=== PATIENT | male | born 1980 | race Caucasian/White ===

== ENCOUNTER 2019-08-24 07:08 | Outpatient (CLI) | payer BC, SELFPAY ==
--- NOTE | 2019-08-24 07:12 | USCV_ITS ---
Percy Nava Age: 39 Gender: M : 1980 Exam Date: 08/24/2019 07:33 Ordering Phys: Oralia Strauss XX Technologist: Gem Teague [place] [facility] [place]: CHEST PAIN BP: 105 / 58 HR: 60 Rhythm: Sinus Technical Quality: Adequate MEASUREMENTS (Male / Female) Normal Values 2D ECHO LV Diastolic Diameter PLAX 4.1 cm 4.2 - 5.9 / 3.9 - 5.3 cm LV Systolic Diameter PLAX 2.6 cm LV Chamber Size 3.6 cm IVS Diastolic Thickness 1.1 cm 0.6 - 1.0 / 0.6 - 0.9 cm IVS Systolic Thickness 1.2 cm LVPW Diastolic Thickness 1.3 cm 0.6 - 1.0 / 0.6 - 0.9 cm LVPW Systolic Thickness 1.9 cm RV Chamber Size 2.4 cm LVOT Diameter 2.0 cm LV Ejection Fraction 2D Teich 65.2 % LV Ejection Fraction MOD 2C 53.1 % LV Ejection Fraction 2C AL 51.2 % LA Diameter 4.7 cm LA Width 4.2 cm LA Height 4.6 cm RA Width 3.2 cm RA Height 3.9 cm Aorta at Sinotubular Diameter 2.8 cm M-MODE LV Diastolic Diameter MM 4.4 cm 4.2 - 5.9 / 3.9 - 5.3 cm LV Systolic Diameter MM 2.8 cm LV Ejection Fraction MM Teich 67.9 % IVS Diastolic Thickness MM 0.7 cm 0.6 - 1.0 / 0.6 - 0.9 cm IVS Systolic Thickness MM 0.8 cm LVPW Diastolic Thickness MM 1.1 cm 0.6 - 1.0 / 0.6 - 0.9 cm LVPW Systolic Thickness MM 1.2 cm Aortic Annulus Diameter 2.7 cm LA Ao Ratio MM 1.7 MV E Point Septal Separation 0.7 cm DOPPLER AV Peak Velocity 119.0 cm/s LVOT Peak Velocity 109.0 cm/s AV Area Cont Eq vti 2.8 cm squared AV Area Cont Eq pk 3.0 cm squared MV Area PHT 3.9 cm squared Mitral E to A Ratio 1.0 MV E' Velocity 11.0 cm/s Mitral E to MV E' Ratio 7.2 Mitral E to LV E' Lateral Ratio 7.0 Mitral E to LV E' Septal Ratio 7.4 TR Peak Velocity 253.0 cm/s TR Peak Gradient 25.5 mmHg TR Mean Velocity 128.9 cm/s TR Mean Gradient 9.6 mmHg TR Velocity Time Integral 66.0 cm TV Peak E Velocity 58.0 cm/s Right Atrial Pressure 3.0 mmHg Pulmonary Artery Systolic Pressu 28.6 mmHg PV Peak Velocity 94.0 cm/s RV Acceleration Time 0.2 s RV Ejection Time 0.4 s RV AcT/ET 0.5 FINDINGS Left Ventricle Normal left ventricular size and systolic function, EF 60 %.normal left ventricular filling pressure. Right Ventricle Normal right ventricular size and systolic function. Right Atrium Normal right atrial size. Left Atrium Mildly increased left atrial size. Mitral Valve Thickened mitral valve. Aortic Valve No gross abnormalities noted Tricuspid Valve No gross abnormalities noted Pulmonic Valve No gross abnormalities noted Pericardium Normal pericardium without effusion. Aorta Normal ascending aorta dimension. CONCLUSIONS Normal left ventricular size and systolic function, EF 60 %. No gross wall motion abnormalities. No significant stenotic or regurgitant lesions Mildly increased left atrial size. Thickened mitral valve. There is no pericardial effusion. There are no intracardiac masses. No previous study is available for comparison. Dr Home Garg MD FACC (Electronically Signed) Final Date: 24 August 2019 15:22 S
== END 2019-08-24 07:09 | disposition home or self-care (01) ==
LOC: US 07:10
PROVIDERS: Family Provider Physician Assistant Medical; PCP Physician Assistant Medical; Visit Provider Nurse Practitioner Family
DX: I05.9 Rheumatic mitral valve disease, unspecified (principal); R53.83 Other fatigue; R07.9 Chest pain, unspecified
CPT/HCPCS: 93306

== ENCOUNTER → 2021-02-22 08:04 | Outpatient (BNVA) | payer BC, SELFPAY | PROVIDERS: Family Provider Physician Assistant Medical; PCP Physician Assistant Medical; Visit Provider Surgery | DX: Z20.822 Contact with and (suspected) exposure to COVID-19 (principal); Z11.52 Encounter for screening for COVID-19 | CPT/HCPCS: 87635 ==

== ENCOUNTER 2021-03-01 08:54 | Day surgery (SDC) | payer BC, SELFPAY ==
[2021-02-23 13:20] VITALS: BMI 30.5
--- NOTE | 2021-03-01 09:16 | ANES.PREANE2 ---
Pre-Anesthetic Assessment Pre-Anesthetic Assessment: Height/Weight: Height 1.78 m Weight 96.615 kg Preop Diagnosis: upper gi symptoms Proposed Procedure: Operation Date: 03/01/21 10:30 Proposed Procedures p EGD 66221 R10.13(Not Applicable) - Charbel Flores MD Familial anesthetic complications: None Was Beta Shannon taken within 24 hours: N/A Was Clonidine taken within 24 hours: N/A Last intake: > 8 hrs Social: Social History: No alcohol and No tobacco Exam: Pre-Anes Outpt Exam: alert, oriented x 3, clear to auscultation bilaterally and regular rate & rhythm Airway: Cervical ROM: WNL MP: 2 Dentition: Full GI: Comments: abdominal pain Anesthetic Plan: ASA status: 1 Anesthesia: MAC Risk of > 500 ml blood loss (7ml/kg in children): No PFSH Anesthesia PFSH: Medical History (Updated 02/19/21 @ 11:43 by Charbel Flores MD) Anxiety Hx of nephrolithotomy with removal of calculi Family History Denies family history of Anesthesia complication Bleeding disorder Social History Smoking and tobacco status: never smoked Data Anesthesia Cardiac Studies: No Data to Display
[2021-03-01 09:44] VITALS: BP 110/83; PULSE 55; RESP 18; TEMP 36.8; O2SAT 97
[2021-03-01] MEDS: sodium chloride 0.9% 1,000 ML 30 ML IV (09:45)
--- NOTE | 2021-03-01 10:19 | W.PM.OPSUD ---
Surgery/Procedure H&P Update DATE OF PROCEDURE: March 01, 2021 DATE H&P PERFORMED: 02/19/21 H&P UPDATE INFORMATION: I have reviewed H&P completed within last 30 days, I have examined patient prior to procedure and No changes to prior documentation PREOP DIAGNOSIS: upper gi symptoms PLANNED PROCEDURE: Operation Date: 03/01/21 10:30 Proposed Procedures p EGD 43957 R10.13(Not Applicable) - Charbel Flores MD
[2021-03-01 11:05] VITALS: BP 117/74; PULSE 68; RESP 16; TEMP 36.2; O2SAT 92
[2021-03-01 11:17] VITALS: BP 119/85; PULSE 54; RESP 18; O2SAT 97
== END 2021-03-01 11:30 | disposition home or self-care (01) ==
PROVIDERS: PCP Physician Assistant Medical; Visit Provider Surgery
PROC: 0DJ08ZZ Inspection of Upper Intestinal Tract, Via Natural or Artificial Opening Endoscopic (ICD-10-PCS; CPT 43235; principal; 2021-03-01 10:30)
DX: R10.13 Epigastric pain (principal); K20.90 Esophagitis, unspecified without bleeding; F41.9 Anxiety disorder, unspecified
CPT/HCPCS: 43235; 96360; 96361; J2704; J7030

== ENCOUNTER 2021-04-05 09:41 | Outpatient (CLI) | payer BC, SELFPAY ==
--- NOTE | 2021-04-05 10:00 | NM_ITS ---
WS: [id number] NUCLEAR MEDICINE HIDA SCAN CLINICAL INFORMATION: R10.13 - Epigastric pain TECHNIQUE: Following intravenous administration of 4.8 mCi of technetium 99m mebrofenin, images of th e abdomen were obtained over the course of 60 minutes. Next, gallbladder ejection fraction was determ ined by obtaining preprandial and one-hour postprandial images of the gallbladder following oral eli stion of Ensure. COMPARISON: FINDINGS: Normal hepatic uptake at 5 minutes. Gallbladder is visualized by 10 minutes. No evidence of acute cho lecystitis. Normal common bile duct and small bowel activity. Normal hepatic washout. Gallbladder ejection fraction 68% within normal limits. No evidence of chronic cholecystitis. NM/NM hepatobiliary w phar* [id number] IMPRESSION: 1. No evidence of acute or chronic cholecystitis. 2. Gallbladder ejection fraction 68% within normal limits.
== END 2021-04-05 09:42 | disposition home or self-care (01) ==
PROVIDERS: PCP Physician Assistant Medical; Visit Provider Surgery
DX: R10.13 Epigastric pain (principal)
CPT/HCPCS: 78227; A9537

== ENCOUNTER 2022-02-12 13:59 | Outpatient (CLI) | payer BC, SELFPAY ==
--- NOTE | 2022-02-12 14:06 | XR_ITS ---
WS: [id number] ABDOMEN: SUPINE FILM HISTORY: STONES COMPARISON: 03/07/2008 Normal bowel gas pattern. Normal osseous structures. Phlebolith LEFT hemipelvis. Right kidney: No renal or ureteral stone identified. Left kidney: No renal or ureteral stone identified. XR/XR KUB [id number] IMPRESSION: No renal or ureteral calcifications.
== END 2022-02-12 14:00 | disposition home or self-care (01) ==
LOC: RAD 14:01
PROVIDERS: PCP Physician Assistant Medical; Visit Provider Urology
DX: N20.1 Calculus of ureter (principal)
CPT/HCPCS: 74018

== ENCOUNTER 2022-02-18 08:20 | Day surgery (SDC) | payer BC, SELFPAY ==
[2022-02-15 14:05] VITALS: BMI 31.5
--- NOTE | 2022-02-18 05:25 | W.PM.OPSUD ---
Surgery/Procedure H&P Update DATE OF PROCEDURE: February 18, 2022 DATE H&P PERFORMED: 02/12/22 H&P UPDATE INFORMATION: I have reviewed H&P completed within last 30 days, I have examined patient prior to procedure, Changes to prior documentation as noted here and H&P is in [facility] [place] on date indicated CHANGES TO PREVIOUS DOCUMENTATION: He passed several stones. KUB shows that the stones previously defined of the left UVJ are no longer present. He is asymptomatic Surgery canceled Reviewed stone risk reduction strategies. Follow-up in about 3 months with KUB PREOP DIAGNOSIS: Left distal ureteral calculi, symptomatic PLANNED PROCEDURE: Operation Date: 02/18/22 10:00 Proposed Procedures p Cystoscopy(Not Applicable) - Alvaro Arevalo MD s Retrograde Pyelogram(Left) - MD meño Rodriguez Ureteroscopy(Not Applicable) - Alvaro Arevalo MD s Laser Lithotripsy(Left) - MD meño Rodriguez Ureteral Stent Placement(Left) - Alvaro Arevalo MD
--- NOTE | 2022-02-18 08:37 | XRR_ITS ---
PROCEDURE INFORMATION: Exam: XR Abdomen Exam date and time: 02/18/2022 8:44 AM Age: 41 years old Clinical indication: Condition or disease; Kidney or ureter condition; Calculus (stone) in kidney; Additional info: Checking for passage of stones TECHNIQUE: Imaging protocol: Radiologic exam of the abdomen. Views: Frontal supine view of the abdomen. 1 View. COMPARISON: CR XR KUB [id number] 02/12/2022 2:[address] ABDOMEN AND PELVIS WITHOUT CONTRAST February 08, 2022. FINDINGS: Gastrointestinal tract: There is a non-obstructive bowel gas pattern. There is no abnormal dilatation of bowel loops. There is no pneumatosis or mass effect. There is no organomegaly. Intraperitoneal space: No definite free air on the supine view exam. Bones/joints: There are no acute osseous abnormalities noted. Soft tissues: No radiopaque foreign body or abnormal opacity. A phlebolith is seen in the left pelvis. No definite renal or ureteral calculi are visualized. XR/XR KUB [id number] IMPRESSION: No definite renal or ureteral calculi are visualized.
--- NOTE | 2022-02-18 09:10 | PC.NURSE ---
pt arrived at [facility] for left ureteral stone removal upon prepping the pt he stated he passed stones at home and that Dr. Arevalo stated that if enough stone was passed the pt could get a KUB the morning of procedure to determine the necessity of proceeding with procedure the KUB results and procedure was then canceled and the pt stones he brought with him were sent off for analysis
== END 2022-02-18 09:37 | disposition home or self-care (01) ==
PROVIDERS: PCP Nurse Practitioner Family; Visit Provider Urology
DX: N20.1 Calculus of ureter (principal); Z53.8 Procedure and treatment not carried out for other reasons
CPT/HCPCS: 74018; 82365; 88300

== ENCOUNTER → 2022-02-28 08:29 | Outpatient (BNVA) | payer BC, SELFPAY | PROVIDERS: PCP Physician Assistant Medical; Visit Provider Urology | DX: N20.9 Urinary calculus, unspecified (principal); N20.1 Calculus of ureter | CPT/HCPCS: 81003 ==

== ENCOUNTER 2022-11-12 13:22 | Emergency (ER) | payer BC, SELFPAY ==
[2022-11-12] VITALS (9 sets, daily range): BP systolic 101–116; BP diastolic 64–77; PULSE 49–70; RESP 12–19; TEMP 36.8; O2SAT 92–95; BMI 32.7
--- NOTE | 2022-11-12 13:24 | XRR_ITS ---
PROCEDURE INFORMATION: Exam: XR Chest Exam date and time: 11/12/2022 1:40 PM Age: 42 years old Clinical indication: Pain; Angina and cough and dyspnea; Angina pectoris; Additional info: Dyspnea/cough TECHNIQUE: Imaging protocol: Radiologic exam of the chest. Views: 1 view. COMPARISON: CR XR KUB [id number] 02/18/2022 8:44 AM FINDINGS: Lungs: 5 mm nodule peripheral left base questionably a granuloma. On a CT scan of 02/08/2022 this is a proven granuloma. Lungs are otherwise clear. Pleural spaces: Unremarkable. No pleural effusion. No pneumothorax. Heart/Mediastinum: Unremarkable. No cardiomegaly. Bones/joints: Unremarkable. XR/XR chest 1V portable [id number] IMPRESSION: 5 mm granuloma left lower lobe.
--- NOTE | 2022-11-12 13:24 | ECG_ITS ---
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 Measurements Intervals [place] Rate: 60 P: 57 IL: 167 QRS: 53 QRSD: 92 T: 17 QT: 394 QTc: 396 Interpretive Statements SINUS RHYTHM No previous ECG available for comparison Electronically Signed On 11-12-2022 16:35:55 CDT by Bigg Baker M.D. [email or web address]; [id number]
--- NOTE | 2022-11-12 13:47 | PC.NURSE ---
PT PLACED ON CONTINUOUS SPO2, NIBP, AND CM.
[2022-11-12] MEDS: sodium chloride 0.9% 1,000 ML 999 ML IV (13:53)
--- NOTE | 2022-11-12 14:04 | ED_ITS ---
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 No difficulty with breathing no associated diaphoresis has had reflux issues in the past but not had symptoms to this extent. He denies any dysuria urgency or frequency denies any recent hematuria. No flank pain. He has a history of nephrolithiasis but no symptoms at this time. No known history of coronary artery disease. MD elicited complaint: abdominal pain Onset (ago): day(s) Pain Consistency: intermittent Location: Epigastric Severity: moderate Quality: cramping Radiation: none Exacerbating factors: nothing Relieving factors: nothing Associated Symptoms: Reports GI cramping and nausea; Denies anorexia, belching, bloating, change in bowel habits, change in stool character, chills, coffee ground emesis, constipation, diarrhea, dyspepsia, dysuria, excessive flatus, fever(s), heartburn, hematochezia, hematuria, hematemesis, fecal incontinence, loose stools, melena, poor appetite, syncope and vomiting Review of Systems Const: Denies: fever(s) or chills Card: Denies: syncope GI: Reports: abdominal pain, nausea and GI cramping; Denies: vomiting, hematemesis, coffee ground emesis, dysphagia, heartburn, early satiety, diarrhea, constipation, bloating, belching, excessive flatus, fecal incontinence, change in bowel habits, change in stool character, hematochezia or melena : Denies: dysuria, urinary frequency, urinary urgency or hematuria Musc: Denies: neck pain or back pain Skin/Breast: Denies: rash or pruritus Neuro: Denies: headache(s) PFSH ED PFSH: Medical History Anxiety Hx of nephrolithotomy with removal of calculi Urolithiasis Surgical History H/O esophagogastroduodenoscopy Grade a esophagitis Status post extracorporeal shock wave therapy Family History Father Cancer BLADDER Mother , IN HER 30'S Cancer MULTIPLE MYELOMA Denies family history of Anesthesia complication Bleeding disorder Social History Smoking and tobacco status: never smoked Alcohol intake: never Marital status: Current occupational status: employed Physical Exam Const: GENERAL APPEARANCE: cooperative and comfortable ORIENTATION/CONSCIOUSNESS: Yes awake, Yes oriented to person, Yes oriented to place and Yes oriented to time HENMT: COMMON NORMALS: normocephalic, atraumatic and hearing grossly normal bilaterally HEAD & SCALP: normocephalic and atraumatic Resp: COMMON NORMALS: normal respiratory effort, No retractions, No use of accessory muscles and clear to auscultation bilaterally AUSCULTATION: clear to auscultation bilaterally Cardio: COMMON NORMALS: regular rate, regular rhythm and No murmurs present (Cardio) RATE: regular rate RHYTHM: regular rhythm GI: COMMON NORMALS: No hepatosplenomegaly present AUSCULTATION: Yes normoactive bowel sounds PALPATION: Yes Tenderness to palpation present (GI) (Epigastric), No Guarding due to palpation present (GI) and Yes No hepatosplenomegaly present Extremity: COMMON NORMALS: normal to inspection, capillary refill normal, no clubbing, cyanosis or edema, no calf tenderness and no pedal edema Neuro: SENSORIUM/ORIENTATION: Yes oriented to person, Yes oriented to place and Yes oriented to time Skin: COMMON NORMALS: no rashes or lesions noted GENERAL SKIN EXAM: no rashes or lesions noted Course Vital Signs: Vital signs: Vital Signs Temperature 98.2 F 11/12/22 13:26 Pulse Rate 52 L 11/12/22 18:00 Respiratory Rate 12 11/12/22 18:00 Blood Pressure 107/67 11/12/22 18:00 Pulse Oximetry 95 11/12/22 18:00 Oxygen Delivery Me thod Room Air 11/12/22 13:26 MDM - Abdominal Pain Medical Decision Making Cardiac enzymes negative mild improvement of symptoms while he was here the GI cocktail did help we will discharge home on pantoprazole set up for outpatient graded exercise stress test follow-up with primary care doctor return if has further problems. Medical Records I reviewed the patient's medical records. Lab Data I reviewed the patient's lab results. 11/12/22 13:53 11/12/22 14:30 Labs/Radiology: Radiology Impressions Chest X-Ray 11/12/22 13:24 IMPRESSION: 5 mm granuloma left lower lobe. Laboratory Results WBC 6.8 10^3/uL (4.0-10.0) 11/12/22 13:53 RBC 5.11 10^6/uL (4.1-5.3) 11/12/22 13:53 Hgb 15.7 g/dL (11.7-16.6) 11/12/22 13:53 Hct 45.0 % (42.0-52.0) 11/12/22 13:53 MCV 88.1 fl (80-94) 11/12/22 13:53 MCH 30.7 pg (28.0-34.0) 11/12/22 13:53 MCHC 34.9 g/dL (30.0-36.0) 11/12/22 13:53 RDW 11.9 % (12.1-15.1) L 11/12/22 13:53 Plt Count 207 10^3/cmm (130-400) 11/12/22 13:53 MPV 11.3 fL (7.4-10.4) H 11/12/22 13:53 Neut % (Auto) 67.3 % 11/12/22 13:53 Lymph % (Auto) 25.4 % 11/12/22 13:53 Posey % (Auto) 6.3 % 11/12/22 13:53 Eos % (Auto) 0.3 % 11/12/22 13:53 Baso % (Auto) 0.4 % 11/12/22 13:53 Neut # (Auto) 4.59 10^3/uL (1.8-7.7) 11/12/22 13:53 Lymph # (Auto) 1.7 10^3/uL (0.8-4.8) 11/12/22 13:53 Posey # (Auto) 0.4 10^3/uL (0.2-0.9) 11/12/22 13:53 Eos # (Auto) 0.0 10^3/uL (0.0-0.8) 11/12/22 13:53 Baso # (Auto) 0.0 10^3/uL (0.0-0.1) 11/12/22 13:53 Nucleated RBC % (auto) 0 % 11/12/22 13:53 Nucleated RBCs # 0.0 /100WBC 11/12/22 13:53 Sodium 139 mmol/L (136-145) 11/12/22 14:30 Potassium 3.8 mmol/L (3.5-5.1) 11/12/22 14:30 Chloride 107 mmol/L (98-107) 11/12/22 14:30 Carbon Dioxide 22 mmol/L (22-29) 11/12/22 14:30 Anion Gap 13.8 (5-19) 11/12/22 14:30 BUN 12 mg/dL (6-20) 11/12/22 14:30 Creatinine 0.7 mg/dL (0.7-1.2) 11/12/22 14:30 GFR Calculation 122.5 mL/min (90-130) 11/12/22 14:30 Glucose 67 mg/dL (65-115) 11/12/22 14:30 Calculated Osmolality 286 mOsm/kg (285-295) 11/12/22 14:30 Calcium 9.0 mg/dL (8.5-10.5) 11/12/22 14:30 Total Bilirubin 0.8 mg/dL (0.15-1.2) 11/12/22 14:30 AST 21 U/L (0-40) 11/12/22 14:30 ALT 31 U/L (0-41) 11/12/22 14:30 Alkaline Phosphatase 89 U/L (40-130) 11/12/22 14:30 Troponin T Baseline 8 ng/L (0-15) 11/12/22 14:30 Troponin T 120 Minute 6.00 ng/L (0-15) 11/12/22 16:20 Delta Troponin T -2.00 ABS# (0-10) L 11/12/22 16:20 Total Protein 6.4 g/dL (6.6-8.7) L 11/12/22 14:30 Albumin 4.0 g/dL (3.5-5.2) 11/12/22 14:30 Globulin 2.4 g/dL (1.3-4.6) 11/12/22 14:30 Lipase 34 U/L (13-60) 11/12/22 14:30 Discharge Plan Discharge Patient Disposition: Home Clinical Impression: Gastroesophageal reflux disease, Atypical chest pain Condition: Stable Prescriptions: New pantoprazole 40 mg tablet,delayed release (DR/EC) 40 mg PO BID 14 Days Qty: 28 0RF Discontinued omeprazole 20 mg capsule,delayed release(DR/EC) 20 mg PO BEDTIME No Action rosuvastatin 5 mg tablet 5 mg PO BEDTIME fluoxetine 20 mg capsule 20 mg PO BEDTIME Discharge Orders: Discharge ED (Routine); Ordered 11/12/22 Ordered By: Slick Yoo Referrals: Martin Triplett [Referring] - Discharge Diet: Usual diet Discharge Activity: Increase activity as tolerated Patient Instructions: Opioid Safety, Pain Management Coding Level of Care Code ED Associate Veterinarian for Lashell Mchugh
[2022-11-12 14:06] LABS: Basophils % 0.4 %; Eosinophils % 0.3 %; Hemoglobin 15.7 g/dL (11.7-16.6); Lymphocytes # 1.7 10^3/uL (0.8-4.8); Lymphocytes % 25.4 %; Mean Corpuscular HGB Conc 34.9 g/dL (30.0-36.0); Mean Corpuscular Hemoglobin 30.7 pg (28.0-34.0); Mean Corpuscular Volume 88.1 fl (80-94); Mean Platelet Volume 11.3 fL (7.4-10.4); Monocytes # 0.4 10^3/uL (0.2-0.9); Monocytes % 6.3 %; Neutrophils # 4.59 10^3/uL (1.8-7.7); Neutrophils % 67.3 %; Nucleated Red Blood Cells % 0 %; Platelet Count 207 10^3/cmm (130-400); Red Blood Count 5.11 10^6/uL (4.1-5.3); Red Cell Distribution Width 11.9 % (12.1-15.1); White Blood Count 6.8 10^3/uL (4.0-10.0)
[2022-11-12 15:08] LABS: Alanine Aminotransferase 31 U/L (0-41); Alkaline Phosphatase 89 U/L (40-130); Anion Gap 13.8 (5-19); Aspartate Amino Transferase 21 U/L (0-40); Blood Urea Nitrogen 12 mg/dL (6-20); Carbon Dioxide 22 mmol/L (22-29); Chloride 107 mmol/L (98-107); Globulin 2.4 g/dL (1.3-4.6); Glomerular Filtration Rate 122.5 mL/min (90-130); Glucose 67 mg/dL (65-115); Lipase 34 U/L (13-60); Osmolality Calculated 286 mOsm/kg (285-295); Potassium 3.8 mmol/L (3.5-5.1); Sodium 139 mmol/L (136-145); Total Bilirubin 0.8 mg/dL (0.15-1.2); Total Protein 6.4 g/dL (6.6-8.7)
--- NOTE | 2022-11-12 15:33 | ECG_ITS ---
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 Measurements Intervals [place] Rate: 51 P: 54 NV: 154 QRS: 57 QRSD: 96 T: 23 QT: 442 QTc: 410 Interpretive Statements SINUS BRADYCARDIA Compared to ECG 11/12/2022 13:34:51 Sinus rhythm no longer present Electronically Signed On 11-12-2022 16:36:49 CDT by Bigg Baker M.D. [email or web address] Energygulf coast veterans health care systemLEAF Commercial Capitaluniversity hospitals geauga medical centerAdvanced Power Projects/store/OM/[id number]
[2022-11-12 16:10] LABS: Troponin(5th) Baseline 8 ng/L (0-15)
[2022-11-12] MEDS: lidocaine 2% viscous 15 ML, aluminum-mag hydrox-simethicon 30 ML, sucralfate oral liq 1 GM PO (16:17)
--- NOTE | 2022-11-13 11:46 | DCPLANNER ---
Addendum entered by Olga Lidia Clark 01/09/23 13:51: Patient had a stress test scheduled - patient did attend appointment Original Note: weatherization operations manager had message to schedule an outpatient stress test for patient. weatherization operations manager faxed signed order to centralized scheduling, who will call patient with appointment information.
== END 2022-11-12 18:05 | disposition home or self-care (01) ==
PROVIDERS: Emergency Provider Family Medicine; PCP Nurse Practitioner Family
DX: K21.9 Gastro-esophageal reflux disease without esophagitis (principal); R07.89 Other chest pain
CPT/HCPCS: 36415; 71045; 80053; 83036; 83690; 84484; 85025; 93005; 96360; 96361; 99285; J7030

== ENCOUNTER 2022-12-09 11:45 | Outpatient (CLI) | payer BC, SELFPAY ==
--- NOTE | 2022-12-09 | ECG_ITS ---
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 Interpretive Statements NAME OF STUDY: TREADMILL STRESS TEST INDICATION: Atypical Chest Pain Baseline blood pressure of 110/74 mm Hg, heart rate of 66 beats per minute and oxygen saturation of 96%. EKG showed sinus rhythm, normal axis with normal ST-Ts. The patient exercised for 7 minutes 59 seconds on a standard [place] protocol. Patient attained a maximum heart rate of 155 beats per minute(88% of the maximum predicted heart rate) with a blood pressure at the peak exercise of 176/76 mm Hg saturation of 94 %. The EKG at the peak exercise revealed tachycardia at 154 bpm. 2 mm horizontal to upsloping ST depression in V3 to V6. Patient did not have any chest pain or any significant arrhythmias with the exercise. During the recovery phase, there were no new changes. Blood pressure at the end of the recovery phase was 139/72 mm Hg with a heart rate of 80 beats per minute oxygen saturation of 95%. CONCLUSION: 1. Positive EKG response to treadmill exercise with 2 mm horizontal to upsloping ST depression in anterior leads. 2. No exercise-induced chest pain or cardiac arrhythmia. 3. Excellent exercise tolerance, attained a maximum of 10.2 METs. 4. Baseline normal blood pressure with normal response to exercise. Electronically Signed On 12-10-2022 12:23:03 CDT by Gretchen Hale M.D. [id number]
[2022-12-09 12:05] VITALS: BMI 33.0
[2022-12-09 12:33] VITALS: BP 139/72; PULSE 77
== END 2022-12-09 11:46 | disposition home or self-care (01) ==
PROVIDERS: PCP Nurse Practitioner Family; Visit Provider Family Medicine
DX: R07.89 Other chest pain (principal)
CPT/HCPCS: 93017

== ENCOUNTER 2022-12-22 11:16 | Observation (INO) | payer BC, SELFPAY ==
[2022-12-22] VITALS (10 sets, daily range): BP systolic 101–135; BP diastolic 68–92; PULSE 49–65; RESP 10–18; TEMP 36.6–37; O2SAT 93–98
--- NOTE | 2022-12-22 11:23 | ED_ITS ---
HPI - Chest Pain General: Chief Complaint: Chest Pain Stated Complaint: Chest Pain, Left arm numbness Time Seen by Provider: 12/22/22 11:23 History of Present Illness: Mr. Nava is a 42-year-old gentleman with history of dyslipidemia and positive family history for early coronary artery disease presenting to the emergency department for evaluation of chest pain. He notes onset of symptoms initially intermittent over the past few weeks. Subsequently it has become more intense a nd frequent. He notes exertional intolerance and substernal pain today with radiation to left arm. Denies other typical associated cardiac features. Overall course of symptoms is worsened. Intensity is currently mild. No other specific changes in health, exacerbating, or alleviating factors identified. Onset (ago): week(s) Timing of current episode: episodic Prior episodes: Yes Onset: during exertion Pain location: substernal Pain radiation: left arm Severity: mild Quality: heaviness Exacerbating factors: exertion Associated symptoms: Reports dyspnea Review of Systems General: Reports: 10 or more systems reviewed and unremarkable except in HPI and below Resp: Reports: dyspnea PFSH ED PFSH: Medical History Anxiety Hx of nephrolithotomy with removal of calculi Urolithiasis Surgical History H/O esophagogastroduodenoscopy Grade a esophagitis Status post extracorporeal shock wave therapy Family History Father Cancer BLADDER Mother , IN HER 30'S Cancer MULTIPLE MYELOMA Denies family history of Anesthesia complication Bleeding disorder Social History Smoking and tobacco status: never smoked Alcohol intake: never Marital status: Current occupational status: employed Physical Exam Const: COMMON NORMALS: alert GENERAL APPEARANCE: cooperative and well developed HENMT: COMMON NORMALS: normocephalic and atraumatic HEAD & SCALP: normocephalic and atraumatic Eye: COMMON NORMALS: conjunctivae normal CONJUNCTIVA: Yes conjunctivae norm al SCLERA: sclerae normal Neck/C-Spine: COMMON NORMALS: supple GENERAL: Yes trachea midline Resp: COMMON NORMALS: clear to auscultation bilaterally EFFORT & INSPECTION: Yes able to speak in complete sentences AUSCULTATION: clear to auscultation bilaterally Cardio: COMMON NORMALS: regular rate and regular rhythm RATE: regular rate RHYTHM: regular rhythm GI: COMMON NORMALS: Soft to palpation PALPATION: Yes Soft to palpation and No Tenderness to palpation present (GI) Extremity: GENERAL: Yes normal exam except as noted and No edema Neuro: COMMON NORMALS: moves all extremities SENSORIUM/ORIENTATION: Yes alert and No Orientation impaired Psych: COMMON NORMALS: mental status grossly normal and Normal thought process present THOUGHT PROCESS: Normal thought process present Course Vital Signs: Vital signs: Vital Signs Temperature 98.2 F 12/24/22 04:00 Pulse Rate 61 12/24/22 11:40 Respiratory Rate 15 12/24/22 11:40 Blood Pressure 120/88 12/24/22 11:40 Pulse Oximetry 93 12/24/22 11:40 Oxygen Delivery Me thod Room Air 12/24/22 08:00 MDM - Chest Pain Medical Decision Making 42-year-old gentleman with cardiac risk factors presenting the emergency department for chest pain that has been worsening. Exam as above. Nontoxic. EKG demonstrates sinus bradycardia with nonspecific ST segment abnormalities, normal axis, no STEMI. No leukocytosis, normal hemoglobin and platelet count. Metabolic panel without significant derangement. -2-hour delta troponin. Chest x-ray with no lobar consolidation or pneumothorax. During ED course patient treated with aspirin. I am quite concerned given patient description of symptoms as well as worsening that this may be cardiac in nature. I believe that patient has sufficient risk factors that he is not low risk by heart score. I discussed disposition options. We will proceed with in-hospital management. The results of ED evaluation were discussed with the patient including plan for admission due to requirement for level of care not available if discharged to prevent significant worsening/deterioration. Patient agreeable with plan. Discussed with hospitalist service who was agreeable to admit patient. Medical Records I reviewed the patient's medical records. Lab Data I reviewed the patient's lab results. 12/24/22 05:27 12/24/22 05:27 Radiology Impressions Chest X-Ray 12/22/22 11:24 IMPRESSION: No acute cardiopulmonary abnormality. Laboratory Results WBC 6.1 10^3/uL (4.0-10.0) 12/22/22 11:34 RBC 5.16 10^6/uL (4.1-5.3) 12/22/22 11:34 Hgb 16.0 g/dL (11.7-16.6) 12/22/22 11:34 Hct 46.1 % (42.0-52.0) 12/22/22 11:34 MCV 89.3 fl (80-94) 12/22/22 11:34 MCH 31.0 pg (28.0-34.0) 12/22/22 11:34 MCHC 34.7 g/dL (30.0-36.0) 12/22/22 11:34 RDW 11.9 % (12.1-15.1) L 12/22/22 11:34 Plt Count 201 10^3/cmm (130-400) 12/22/22 11:34 MPV 11.3 fL (7.4-10.4) H 12/22/22 11:34 Neut % (Auto) 54.4 % 12/22/22 11:34 Lymph % (Auto) 36.2 % 12/22/22 11:34 [place] % (Auto) 6.4 % 12/22/22 11:34 Eos % (Auto) 2.0 % 12/22/22 11:34 Baso % (Auto) 0.7 % 12/22/22 11:34 Neut # (Auto) 3.31 10^3/uL (1.8-7.7) 12/22/22 11:34 Lymph # (Auto) 2.2 10^3/uL (0.8-4.8) 12/22/22 11:34 [place] # (Auto) 0.4 10^3/uL (0.2-0.9) 12/22/22 11:34 Eos # (Auto) 0.1 10^3/uL (0.0-0.8) 12/22/22 11:34 Baso # (Auto) 0.0 10^3/uL (0.0-0.1) 12/22/22 11:34 Nucleated RBC % (auto) 0 % 12/22/22 11:34 Nucleated RBCs # 0.0 /100WBC 12/22/22 11:34 Sodium 136 mmol/L (136-145) 12/22/22 11:34 Potassium 4.0 mmol/L (3.5-5.1) 12/22/22 11:34 Chloride 101 mmol/L (98-107) 12/22/22 11:34 Carbon Dioxide 25 mmol/L (22-29) 12/22/22 11:34 Anion Gap 14.0 (5-19) 12/22/22 11:34 BUN 9 mg/dL (6-20) 12/22/22 11:34 Creatinine 1.0 mg/dL (0.7-1.2) 12/22/22 11:34 GFR Calculation 81.2 mL/min (90-130) L 12/22/22 11:34 Glucose 86 mg/dL (65-115) 12/22/22 11:34 Calculated Osmolality 280 mOsm/kg (285-295) L 12/22/22 11:34 Calcium 9.3 mg/dL (8.5-10.5) 12/22/22 11:34 Total Bilirubin 1.0 mg/dL (0.15-1.2) 12/22/22 11:34 AST 23 U/L (0-40) 12/22/22 11:34 ALT 41 U/L (0-41) 12/22/22 11:34 Alkaline Phosphatase 95 U/L (40-130) 12/22/22 11:34 Troponin T Baseline 6 ng/L (0-15) 12/22/22 11:34 Troponin T 120 Minute 6.00 ng/L (0-15) 12/22/22 13:30 Delta Troponin T 0 ABS# (0-10) 12/22/22 13:30 NT-Pro-B Natriuret Pep 36 pg/mL (0-125) 12/22/22 11:34 Total Protein 7.1 g/dL (6.6-8.7) 12/22/22 11:34 Albumin 4.4 g/dL (3.5-5.2) 12/22/22 11:34 Globulin 2.7 g/dL (1.3-4.6) 12/22/22 11:34 Lipase 37 U/L (13-60) 12/22/22 11:34 Discharge Plan Discharge Patient Disposition: Placed in Observation Admit Provider: Capo Mccollum Clinical Impression: Chest pain Discharge Diet: Cardiac and Low Cholesterol Discharge Activity: Resume usual activity Coding Level of Care Code ED Humanities And Languages Professor for Chg Lolita
--- NOTE | 2022-12-22 11:24 | XRR_ITS ---
PROCEDURE INFORMATION: Exam: XR Chest Exam date and time: 12/22/2022 11:42 AM Age: 42 years old Clinical indication: Pain; Chest pressure; Additional info: Cp TECHNIQUE: Imaging protocol: Radiologic exam of the chest. Views: 1 view. COMPARISON: CR XR chest 1V portable [id number] 11/12/2022 1:40 PM FINDINGS: Lungs: The lung parenchyma is clear. Pleural spaces: No pneumothorax. No pleural effusion. Heart/Mediastinum: The cardiomediastinal silhouette is within normal limits. Bones/joints: Unremarkable. XR/XR chest 1V portable [id number] IMPRESSION: No acute cardiopulmonary abnormality.
--- NOTE | 2022-12-22 11:24 | ECG_ITS ---
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 Measurements Intervals [place] Rate: 57 P: 39 [place]: 162 QRS: 31 QRSD: 95 T: 15 QT: 399 QTc: 389 Interpretive Statements SINUS BRADYCARDIA Compared to ECG 11/12/2022 16:04:28 No significant changes Electronically Signed On 12-23-2022 21:20:39 CDT by Gretchen Hale M.D. [id number]
[2022-12-22] MEDS: aspirin 81 mg Chew Tablet 324 MG PO (11:32)
[2022-12-22 11:40] LABS: Basophils % 0.7 %; Eosinophils # 0.1 10^3/uL (0.0-0.8); Hematocrit 46.1 % (42.0-52.0); Lymphocytes # 2.2 10^3/uL (0.8-4.8); Lymphocytes % 36.2 %; Mean Corpuscular HGB Conc 34.7 g/dL (30.0-36.0); Mean Corpuscular Volume 89.3 fl (80-94); Mean Platelet Volume 11.3 fL (7.4-10.4); Monocytes # 0.4 10^3/uL (0.2-0.9); Monocytes % 6.4 %; Neutrophils # 3.31 10^3/uL (1.8-7.7); Neutrophils % 54.4 %; Nucleated Red Blood Cells % 0 %; Platelet Count 201 10^3/cmm (130-400); Red Blood Count 5.16 10^6/uL (4.1-5.3); Red Cell Distribution Width 11.9 % (12.1-15.1); White Blood Count 6.1 10^3/uL (4.0-10.0)
[2022-12-22 12:07] LABS: Troponin(5th) Baseline 6 ng/L (0-15)
[2022-12-22 12:12] LABS: Alanine Aminotransferase 41 U/L (0-41); Albumin Level 4.4 g/dL (3.5-5.2); Alkaline Phosphatase 95 U/L (40-130); Aspartate Amino Transferase 23 U/L (0-40); Blood Urea Nitrogen 9 mg/dL (6-20); Calcium 9.3 mg/dL (8.5-10.5); Carbon Dioxide 25 mmol/L (22-29); Chloride 101 mmol/L (98-107); Creatinine Clr Calc Pharmacy 114.0405; Globulin 2.7 g/dL (1.3-4.6); Glomerular Filtration Rate 81.2 mL/min (90-130); Glucose 86 mg/dL (65-115); Lipase 37 U/L (13-60); NT Pro B Type Natriuretic Pept 36 pg/mL (0-125); Osmolality Calculated 280 mOsm/kg (285-295); Sodium 136 mmol/L (136-145); Total Protein 7.1 g/dL (6.6-8.7)
--- NOTE | 2022-12-22 13:24 | ECG_ITS ---
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 Measurements Intervals [place] Rate: 49 P: 35 SC: 153 QRS: 34 QRSD: 102 T: 21 QT: 418 QTc: 381 Interpretive Statements SINUS BRADYCARDIA Compared to ECG 12/22/2022 11:28:34 No significant changes Electronically Signed On 12-23-2022 21:36:59 CDT by Gretchen Hale M.D. [id number]
[2022-12-22 15:09] LABS: Troponin 5 2HR Delta 0 ABS# (0-10)
--- NOTE | 2022-12-22 16:30 | USCV_ITS ---
Percy Nava Age: 42 Gender: M : 1980 Exam Date: 12/22/2022 19:05 Ordering Phys: Capo Mccollum MD Technologist: Flash Merritt Exam Location: [facility] Indication: chest pain BP: 137 / 75 HR: 56 Rhythm: Sinus Technical Quality: Adequate MEASUREMENTS (Male / Female) Normal Values 2D ECHO LV Diastolic Diameter PLAX 3.8 cm 4.2 - 5.9 / 3.9 - 5.3 cm LV Systolic Diameter PLAX 3.0 cm IVS Diastolic Thickness 1.1 cm 0.6 - 1.0 / 0.6 - 0.9 cm IVS Systolic Thickness 1.5 cm LVPW Diastolic Thickness 1.3 cm 0.6 - 1.0 / 0.6 - 0.9 cm LVPW Systolic Thickness 1.3 cm LVOT Diameter 1.9 cm LV Ejection Fraction 2D Teich 11.1 % LV Ejection Fraction MOD 2C 63.8 % LV Ejection Fraction 2C AL 66.4 % LA Diameter 4.2 cm IVC Diameter 2.2 cm M-MODE Aortic Annulus Diameter 2.9 cm LA Ao Ratio MM 1.6 MV E Point Septal Separation 0.3 cm DOPPLER AV Peak Velocity 140.0 cm/s LVOT Peak Velocity 106.0 cm/s AV Area Cont Eq vti 2.3 cm squared AV Area Cont Eq pk 2.2 cm squared MV Area PHT 4.2 cm squared Mitral E to A Ratio 1.3 MV E' Velocity 44.0 cm/s Mitral E to MV E' Ratio 6.8 Mitral E to LV E' Lateral Ratio 6.3 Mitral E to LV E' Septal Ratio 7.5 TR Peak Velocity 178.0 cm/s TR Peak Gradient 12.7 mmHg TV Peak E Velocity 88.0 cm/s Right Atrial Pressure 3.0 mmHg Pulmonary Artery Systolic Pressu 15.7 mmHg RV Acceleration Time 0.1 s FINDINGS Left Ventricle Normal left ventricular size, systolic function and wall thickness, with no regional wall motion abnormalities. Left ventricular ejection fraction is estimated at 65 %. Normal diastolic function. Right Ventricle Normal right ventricular size and systolic function. Right Atrium Normal right atrial size. Left Atrium Normal left atrial size. Mitral Valve Structurally normal mitral valve. No mitral valve stenosis. Trace mitral valve regurgitation. Aortic Valve Structurally normal trileaflet aortic valve. No aortic valve stenosis. No aortic valve regurgitation. Tricuspid Valve Structurally normal tricuspid valve. No tricuspid valve stenosis. Trace tricuspid valve regurgitation. Pulmonic Valve Structurally normal pulmonic valve. No pulmonary valve stenosis. No pulmonary valve regurgitation. Pericardium No pericardial effusion. Aorta Normal size aortic root and proximal ascending aorta. IVC Inferior vena cava not visualized. CONCLUSIONS 1. Normal left ventricular size, systolic function and wall thickness, with no regional wall motion abnormalities. Left ventricular ejection fraction is estimated at 65 %. Normal diastolic function. 2. No significant valvular abnormality. 3. No significant change when compared to old study 08/24/2019. Grtechen Hale MD (Electronically Signed) Final Date: 23 December 2022 05:53 S
--- NOTE | 2022-12-22 16:30 | PM.HP ---
Providers/Chief Complaint Admitting Physician: Capo Mccollum MD Primary Care Provider: JACK Solis Chief Complaint: Chest Pain, Left arm numbness History of Present Illness Percy Nava is a 42 year old male with PMH of dyslipidemia and abnormal EKG response to treadmill exercise came in today with c/o shoulder blade pain that started on Friday and latter he also started having lt arm pain,he decribe the shoulder blade pain as pressure like intermittent in nature lasting about 30 mins,denied any associated , palpitation, diaphoresis,nausea,vomitting, sob, fever,cough.He does compalin of SOB with exertion particularly when he is carrying some weight and walking,recently he underwent excercise treadmill test which showed Positive EKG response to treadmill exercise with 2 mm horizontal to upsloping ST depression in anterior leads.? No exercise-induced chest pain or cardiac arrhythmia.Excellent exercise tolerance, attained a maximum of 10.2 METs.? Baseline normal blood pressure with normal response to exercise.EKG today has shown : Sinus Bradycardia, Troponin Trend : is unremarkable. Xray chest is unremarkable. Review of Systems General: Reports: 10 or more systems reviewed and unremarkable except in HPI and below Const: Denies: fever(s), chills, body aches, change in appetite or diaphoresis Card: Reports: dyspnea on exertion; Denies: palpitations, edema, swelling of feet/ankles, orthopnea or leg pain with exertion Resp: Denies: dyspnea, productive cough, wheezing or pain on inspiration GI: Denies: abdominal pain, nausea, vomiting, diarrhea or constipation : Denies: flank pain or difficulty urinating Musc: Denies: back pain, extremity pain or extremity swelling Neuro: Denies: headache(s), difficulty walking or confusion Medications/Allergies Home Medications Medication Instructions Recorded Confirmed Last Taken Type rosuvastatin 5 mg tablet 5 mg PO BEDTIME 02/12/22 12/22/22 12/21/22 History fluoxetine 20 mg capsule 20 mg PO BEDTIME 11/12/22 12/22/22 12/21/22 History pantoprazole 40 mg tablet,delayed 40 mg PO BID 12/22/22 12/22/22 12/21/22 History release Allergies Allergy/AdvReac Type Severity Reaction Status Date / Time Penicillins Allergy Unknown Verified 12/22/22 11:24 PFSH Acute PFSH: Medical History Anxiety Hx of nephrolithotomy with removal of calculi Urolithiasis Surgical History H/O esophagogastroduodenoscopy Grade a esophagitis Status post extracorporeal shock wave therapy Family History Father Cancer BLADDER Mother , IN HER 30'S Cancer MULTIPLE MYELOMA Denies family history of Anesthesia complication Bleeding disorder Social History Smoking and tobacco status: never smoked Alcohol intake: never Marital status: Current occupational status: employed Vitals/I&O/Wt Last Vital Signs Pulse 49 L 12/22/22 16:07 Resp 10 L 12/22/22 15:58 BP 122/85 12/22/22 15:58 Pulse Ox 94 12/22/22 16:07 O2 Del Method Room Air 12/22/22 16:07 Weight last 48 hrs Weight 104.326 kg Physical Exam Const: COMMON NORMALS: patient oriented x3 HENMT: COMMON NORMALS: normocephalic and atraumatic HEAD & SCALP: normocephalic and atraumatic Resp: COMMON NORMALS: clear to auscultation bilaterally AUSCULTATION: clear to auscultation bilaterally Cardio: COMMON NORMALS: regular rate, regular rhythm, S1 normal heart sound present, S2 normal heart sound present, No gallops present (Cardio), No murmurs present (Cardio), No rub (Cardio) and Peripheral pulses 2+ throughout RATE: regular rate RHYTHM: regular rhythm HEART SOUNDS: S1 normal heart sound present and S2 normal heart sound present PERIPHERAL PULSES: Peripheral pulses 2+ throughout GI: COMMON NORMALS: Soft to palpation and non-tender AUSCULTATION: Yes normoactive bowel sounds PALPATION: Yes Soft to palpation and Yes No hepatosplenomegaly present RECTAL EXAM: Yes deferred Extremity: COMMON NORMALS: no clubbing, cyanosis or edema and no pedal edema Neuro: COMMON NORMALS: patient oriented x3 Data 12/22/22 11:34 12/22/22 11:34 A&P Assessment and plan (1) Chest pain: (2) Dyslipidemia: (3) Abnormal stress ECG with treadmill: Plan 42 year old male with PMH of dyslipidemia and abnormal EKG response to treadmill exercise came in today with c/o shoulder blade pain that started on Friday and latter he also started having lt arm pain,he decribe the shoulder blade pain as pressure like intermittent in nature lasting about 30 mins,denied any associated , palpitation, diaphoresis,nausea,vomitting, sob, fever,cough.He does compalin of SOB with exertion particularly when he is carrying some weight and walking. Assessment : Chest Pain: Recent : excercise treadmill test which showed Positive EKG response to treadmill exercise with 2 mm horizontal to upsloping ST depression in anterior leads.? No exercise-induced chest pain or cardiac arrhythmia.Excellent exercise tolerance, attained a maximum of 10.2 METs.? Baseline normal blood pressure with normal response to exercise. EKG today has shown : Sinus Bradycardia, Troponin Trend : is unremarkable. Xray chest is unremarkable. Follow lipid panel,hab1c,tsh Cardiology on Board NPO After midnight Dyslipidemia: Continue lipitor 20 mg po daily Attestations Medical Necessity Statement*: Patient needs to be in hospital for the management of chest pain. Coding Level of Care Code Acute Code for Chg Fwd Diagnoses Chest pain R07.9 Dyslipidemia E78.5 Abnormal stress ECG with treadmill R94.39
--- NOTE | 2022-12-22 17:24 | ECG_ITS ---
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 Measurements Intervals [place] Rate: 57 P: 44 [place]: 151 QRS: 48 QRSD: 97 T: 13 QT: 419 QTc: 411 Interpretive Statements SINUS BRADYCARDIA Compared to ECG 12/22/2022 13:24:40 No significant changes Electronically Signed On 12-23-2022 21:35:59 CDT by Gretchen Hale M.D. [id number]
[2022-12-22] MEDS: enoxaparin 40 mg/0.4 mL Syringe SUBCUT (17:25)
[2022-12-22] MEDS: pantoprazole DR 40 mg Tablet PO (17:25)
--- NOTE | 2022-12-22 18:53 | PC.NURSE ---
pt came from ER denies any chest pain or discomfort when asked. oriented to staff, and how to use call light. at bedside. informed about cares and treatments.
[2022-12-22 18:59] LABS: Troponin 5 6HR Delta 0 ng/L (0-12)
[2022-12-22] MEDS: atorvastatin 40 mg Tablet 20 MG PO (21:08)
[2022-12-22] MEDS: fluoxetine 20 mg Capsule PO (21:08)
[2022-12-23] VITALS (11 sets, daily range): BP systolic 102–168; BP diastolic 66–80; PULSE 48–66; RESP 12–22; TEMP 36.6–36.8; O2SAT 89–95
[2022-12-23 04:40] LABS: Basophils % 0.7 %; Eosinophils # 0.1 10^3/uL (0.0-0.8); Eosinophils % 2.3 %; Hematocrit 44.6 % (42.0-52.0); Hemoglobin 15.2 g/dL (11.7-16.6); Lymphocytes # 2.5 10^3/uL (0.8-4.8); Lymphocytes % 41.7 %; Mean Corpuscular HGB Conc 34.1 g/dL (30.0-36.0); Mean Corpuscular Hemoglobin 30.5 pg (28.0-34.0); Mean Corpuscular Volume 89.4 fl (80-94); Mean Platelet Volume 12.1 fL (7.4-10.4); Monocytes # 0.4 10^3/uL (0.2-0.9); Monocytes % 6.6 %; Neutrophils # 2.96 10^3/uL (1.8-7.7); Neutrophils % 48.5 %; Nucleated Red Blood Cells % 0 %; Platelet Count 194 10^3/cmm (130-400); Red Blood Count 4.99 10^6/uL (4.1-5.3); Red Cell Distribution Width 12.1 % (12.1-15.1); White Blood Count 6.1 10^3/uL (4.0-10.0)
[2022-12-23 04:51] LABS: Estmated Average Glucose 105; Hemoglobin A1C 5.3 % (4.0-6.0)
[2022-12-23 05:03] LABS: Blood Urea Nitrogen 9 mg/dL (6-20); Carbon Dioxide 25 mmol/L (22-29); Chloride 106 mmol/L (98-107); Cholesterol 155 mg/dL (0-200); Glomerular Filtration Rate 91.7 mL/min (90-130); Glucose 89 mg/dL (65-115); HDL Cholesterol 31 mg/dL (60-100); LDL Cholesterol Calculated 94 mg/dL (50-129); LDL HDL Ratio 3.03 RATIO (0.00-3.22); Osmolality Calculated 288 mOsm/kg (285-295); Sodium 140 mmol/L (136-145); Triglycerides 149 mg/dL (0-150)
[2022-12-23 05:05] LABS: Thyroid Stimulating Hormone 1.38 uIU/mL (0.27-4.20)
--- NOTE | 2022-12-23 08:40 | P.CONIM_ITS ---
Providers/Reason For Consult Consulting Physician/Specialty*: Dr. Hale, Cardiology Reason for Consult*: Chest pain abnormal stress test Attending Physician: Eve Do MD Primary Care Provider: JACK Solis History of Present Illness History of Present Illness Percy Nava is a 42 year old male with PMHx of dyslipidemia, GERD and recently abnormal treadmill stress test. He came in with c/o shoulder blade pain that started on Friday and later he also started having left arm pain. He describes shoulder blade pain as pressure like intermittent in nature lasting about 30 mins and denied any associated , palpitation, diaphoresis,nausea,vomitting, sob, fever,cough.He does complain of SOB with exertion particularly when he is carrying some weight and walking. Exercise? treadmill test showed Positive EKG response to treadmill exercise with 2 mm hor izontal to upsloping ST depression in anterior leads.? EKG with Sinus Bradycardia. Flat Troponin Trend. No chest pain at this time. Review of Systems General: Reports: 10 or more systems reviewed and unremarkable except in HPI and below Const: Denies: fever(s), chills, body aches, change in appetite or diaphoresis Card: Reports: dyspnea on exertion; Denies: palpitations, edema, swelling of feet/ankles, orthopnea or leg pain with exertion Resp: Denies: dyspnea, productive cough, wheezing or pain on inspiration GI: Denies: abdominal pain, nausea, vomiting, diarrhea or constipation : Denies: flank pain or difficulty urinating Musc: Denies: back pain, extremity pain or extremity swelling Neuro: Denies: headache(s), difficulty walking or confusion Medications/Allergies Home Medications Medication Instructions Recorded Confirmed Last Taken Type rosuvastatin 5 mg tablet 5 mg PO BEDTIME 02/12/22 12/22/22 12/21/22 History fluoxetine 20 mg capsule 20 mg PO BEDTIME 11/12/22 12/22/22 12/21/22 History pantoprazole 40 mg tablet,delayed 40 mg PO BID 12/22/22 12/22/22 12/21/22 History release Allergies Allergy/AdvReac Type Severity Reaction Status Date / Time Penicillins Allergy Unknown Verified 12/22/22 11:24 Current Medications Generic Name Dose Route Start Last Admin Trade Name Freq PRN Reason Stop Dose Admin Atorvastatin Calcium 20 mg 12/22/22 21:00 12/22/22 21:08 Atorvastatin 40 Mg Tablet PO 20 mg BEDTIME MARK Administration Enoxaparin Sodium 40 mg 12/22/22 16:30 12/22/22 17:25 Enoxaparin 40 Mg/0.4 Ml Syringe SUBCUT 40 mg Q24H MARK Administration Fluoxetine HCl 20 mg 12/22/22 21:00 12/22/22 21:08 Fluoxetine 20 Mg Capsule PO 20 mg BEDTIME MARK Administration Pantoprazole Sodium 40 mg 12/22/22 18:00 12/22/22 17:[address] 40 Mg Tablet PO 40 mg BID MARK Administration PFSH Acute PFSH: Medical History Anxiety Hx of nephrolithotomy with removal of calculi Urolithiasis Surgical History H/O esophagogastroduodenoscopy Grade a esophagitis Status post extracorporeal shock wave therapy Family History Father Cancer BLADDER Mother , IN HER 30'S Cancer MULTIPLE MYELOMA Denies family history of Anesthesia complication Bleeding disorder Social History Smoking and tobacco status: never smoked Alcohol intake: never Marital status: Current occupational status: employed Vitals/I&O/Wt Last Vital Signs Temp 98.3 F 12/23/22 07:48 Pulse 51 L 12/23/22 07:48 Resp 15 12/23/22 07:48 BP 107/70 12/23/22 07:48 Pulse Ox 92 12/23/22 07:48 O2 Del Method Room Air 12/23/22 07:48 12/22/22 12/23/22 12/23/22 22:59 06:59 14:59 Intake Total 354 / 354 0 / 354 Balance 354 / 354 0 / 354 Weight last 48 hrs Weight 230 lb Physical Exam Const: COMMON NORMALS: no acute distress, patient oriented x3 and alert GENERAL APPEARANCE: cooperative, comfortable, well kempt and well hydrated HENMT: COMMON NORMALS: hearing grossly normal bilaterally, external ears normal and moist oral mucous membranes FACE & SINUS: normal facial exam NOSE: No nasal discharge present EXTERNAL EAR: Yes external ears normal MOUTH: lip normal Eye: COMMON NORMALS: EOMs intact bilaterally and no scleral icterus GENERAL EYE: appearance normal, both eyes and all related structures ALIGNMENT: Yes alignment normal Neck/C-Spine: COMMON NORMALS: supple and no JVD GENERAL: Yes normal visual inspection CAROTIDS: Yes normal carotid upstroke Lymph: LYMPHATIC: no lymphadenopathy noted Chest: COMMONS NORMALS: normal inspection of the chest and normal palpation of entire chest wall CHEST: Yes Symmetrical chest wall rise and No tenderness Resp: COMMON NORMALS: clear to auscultation bilaterally EFFORT & INSPECTION: Yes able to speak in complete sentences, No tachypneic, No respiratory distress, No pursed lip breathing, No labored and No Actively coughing AUSCULTATION: clear to auscultation bilaterally, no crackles, no rales, no rhonchi and no wheezes Cardio: COMMON NORMALS: no JVD, regular rate, regular rhythm, S1 normal heart sound present, S2 normal heart sound present and Peripheral pulses 2+ throughout PALPATION: normal PMI RATE: regular rate RHYTHM: regular rhythm HEART SOUNDS: S1 normal heart sound present, S2 normal heart sound present, no click, no gallops and no murmurs BRUITS: no carotid bruits PERIPHERAL PULSES: Peripheral pulses 2+ throughout, radial pulses present, posterior tibial pulses present and dorsalis pedis present GI: COMMON NORMALS: Soft to palpation AUSCULTATION: Yes normoactive bowel sounds PALPATION: Yes Soft to palpation, No Tenderness to palpation present (GI), No Guarding due to palpation present (GI) and No Rigid due to palpation PERCUSSION: tympanic to percussion Extremity: GENERAL: No clubbing, No cyanosis, Yes edema and No pallor Neuro: COMMON NORMALS: patient oriented x3, CN's II-XII intact bilaterally and no focal motor deficits SENSORIUM/ORIENTATION: Yes alert Psych: COMMON NORMALS: Normal thought process present and speech normal APPEARANCE: Yes well kempt SPEECH: Yes normal speech MOOD & AFFECT: Yes euthymic mood THOUGHT PROCESS: Normal thought process present THOUGHT CONTENT: Yes Normal thought content present Skin: COMMON NORMALS: no rashes or lesions noted and no petechiae GENERAL SKIN EXAM: no rashes or lesions noted Data 12/23/22 03:36 12/23/22 03:36 Other data: Treadmill stress test (12/10/22) CONCLUSION: 1.? Positive EKG response to treadmill exercise with 2 mm horizontal to upsloping ST depression in anterior leads.? 2.? No exercise-induced chest pain or cardiac arrhythmia. 3.? Excellent exercise tolerance, attained a maximum of 10.2 METs.? 4.? Baseline normal blood pressure with normal response to exercise. A&P Assessment and plan (1) Chest pain: Plan for [facility] given chest pain and abnormal treadmill stress test -continue ASA, statin Risks and benefits were discussed with the patients. Possible complications including risk of heart attack stroke and , coronary perforation, arrhythmia, cardiac tamponade in urgent CABG were discussed with the patient as well. Plan is to proceed for the procedure at the earliest. (2) Abnormal stress ECG with treadmill: (3) Dyslipidemia: Plan Bradycardia Tobacco abuse Coding Level of Care Code 21068 Diagnoses Chest pain R07.9 Abnormal stress ECG with treadmill R94.39 Dyslipidemia E78.5
[2022-12-23] MEDS: pantoprazole DR 40 mg Tablet PO ×2 (09:10→22:17)
[2022-12-23] MEDS: acetaminophen 325 mg Tablet 650 MG PO (09:11)
--- NOTE | 2022-12-23 10:56 | XACV_ITS ---
Exam Room: [facility] Ht: 178 cm Wt: 104 kg BSA: 2.30 m2 Gender: Male : 1980 Any Known Allergies: Penicillins Exam Priority: Routine Procedure(s): Procedure Description: Diagnostic procedure Procedure Description: Left Heart Catheterization Procedure Description: Coronary Angiography Diagnostic Cath Status: Elective Diagnostic Findings * 38-year-old man with past medical history of hyperlipidemia, chronic tobacco use and gastroesophageal reflux disease presented with atypical chest discomfort. He recently had a treadmill stress test positive EKG changes in anterior leads. I decided to proceed with coronary angiogram.. * No disease noted in the Left Main, Left Anterior Descending, Right, or Circumflex coronary arteries. * Coronary angiography shows right dominance. * FABI 2 flow noted in left anterior descending artery. Conclusions 1. No disease noted in the Left Main, Left Anterior Descending, Right, or Circumflex coronary arteries. 2. FABI 2 flow noted in left anterior descending artery. Recommendations * Continue current medical management and risk factor modification. * Advised extensively on quitting tobacco use. LV EDP: 4 mmHg Left Ventriculography Findings: * Left Ventriculogram not performed to minimize contrast use. Pressures Phase:Rest AO : 102 / 77 ( 89 ) @ 5:22:00 PM 118 / 66 ( 81 ) @ 5:25:00 PM 99 / 79 ( 91 ) @ 5:35:00 PM 119 / 94 ( 107 ) @ 6:16:00 PM LV : 148 / 15 / 11 @ 5:24:00 PM 119 / 2 / 4 @ 5:24:00 PM Clinical Evaluation EBL: 5mL-10mL Procedural Details Procedure Consent Obtained. Current Diagnosis : Unstable angina. Admit Source: In Patient. Pre-Procedure Time Out. Identified patient by full name and date of as verbalized by the patient/guarantor. Does the consent match the physician's order: Yes. Accurate & Complete Informed Consent: Yes. Inpatient/Outpatient History & Physical on Chart: Yes. If H&P is completed, is and addenduem needed: No; If yes, is the addendum complete: N/A. Visualize and Verify Site with Patient/Guarantor: N/A. Relevant Radiology Images available: N/A. Pre-op teaching completed and patient verbalized understanding. The risks, benefits, and alternatives of sedation and/or procedure were discussed by physician. The patient agrees to continue. Procedure started. [facility] Clinical Fraility Score: 2: Well. 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 Chest Pain Symptom Assessment: Typical Angina Symptoms. Cardiovascular Instability: Yes, if yes, Persistant Ischemic Symptoms. Correct patient, site and procedure confirmed by cath team. Current diagnosis: Chest Pain. PERRLA. 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 Lungs clear x 5 lobes. IV Site on Arrival: 20 gauge in the left anticubital. IV Fluids: 0.9% NaCl at KVO. 0 mL infused prior to cathode ray tube salvage processor. Pre Procedural Pulses: right radial was 3+. Pre Procedural Pulses: bilateral dorsalis pedis was 2+. Oxygen started at 2liters/min via nasal canula. right groin was prepped with chloroprep then draped in the usual sterile fashion. right radial was prepped with chloroprep then draped in the usual sterile fashion. Baseline sample Acquired. HR: 64 BPM. Physician notified. Physician arrived. Physician scrubbed in. Immediate Pre-Procedure Time Out. Correct Patient: Yes; Correct Procedure: Yes; Correct Site: Yes; Correct Patient Position: Yes; Correct Supplies: Yes; Dried Flammable Prep: Yes; Blood Products Available: N/A;. Lidocaine 1% infiltrated to the right radial. Arterial access obtained. A 5 finnish TIG catheter in over wire. EDP Sample taken: LV 148/15,11; HR: 140 BPM; SpO2: 96%. EDP Sample taken: LV 119/2,4; HR: 109 BPM; SpO2: 96%. Pullback taken: LV Off; AO Off; Mean: , Peak to Peak: , SEP: ; HR: 93 BPM; SpO2: 96%. Catheter removed over the exchange wire. A 5 finnish JL4 catheter in over wire. Catheter removed over the exchange wire. A 5 finnish JL3.5 catheter in over wire. Catheter removed over the exchange wire. A 5 finnish JR4 catheter in over wire. Multiple views taken of right coronary artery. Catheter removed over the exchange wire. A 5 finnish JL4.5 catheter in over wire. Catheter removed over the exchange wire. A 5 finnish JL5 catheter in over wire. Catheter removed over the exchange wire. A 5 finnish AL2 catheter in over wire. Catheter removed over the exchange wire. Patient's family updated. Unable to engage the left due to difficulty anatomy. Procedure access switched to groin at this time. Lidocaine 1% infiltrated to the right groin. Arterial access obtained with micropuncture set. A 5 finnish JL4 catheter in over wire. Multiple views taken of left coronary artery. Catheter removed over the exchange wire. Physician scrubbed out. A TR Band was successful obtaining hemostatsis at the Right Radial artery insertion site. A Suture was successful obtaining hemostatsis at the Right Femoral artery insertion site. Sheath(s) sutured into position with 2-0 silk and sterile 4x4's and Op-site applied over the site. No oozing or signs and symptoms of hematoma noted. Post Procedure: Pulses reassessed and unchanged. PERRLA. 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 No VTE prophylaxis required. Medication's Wasted: Lidocaine 1% = 2 mL. Medication's Wasted: Nitro = 49.6 mg. Medication's Wasted: Other = Fentanyl 50 mcg. Medication's Wasted: Other = Versed 1 mg. Medication's Wasted: Heparin = 4000 u. Total IV fluids: 112 mL. Post-op diagnosis: Normal Coronaries. Complications: none. Estimated blood loss: 5mL-10mL. Responsiveness - Normal response to verbal stimuli; alert and oriented, PERRLA. Airway - Unaffected, no intervention required; spontaneous ventilation. Circulation: W/N/L, pulses unchanged. Nausea/Vomiting: No. Procedure completed. Patient transferred by bed to 1st floor. Vital chart was stopped. Access Site Site: Right Radial artery Sheath Size: 6 Fr Hemostasis Method: TR Band Hemostasis Success: Successful Site: Right Femoral artery Sheath Size: 6 Fr Hemostasis Method: Suture Hemostasis Success: Successful Procedure Medications Start: 3:55 PM Stop: 3:55 PM Medication: Fentanyl Amount: 50 mcg Route: I.V. Start: 4:16 PM Stop: 4:16 PM Medication: Versed Amount: 1 mg Route: I.V. Start: 4:16 PM Stop: 4:16 PM Medication: Fentanyl Amount: 50 mcg Route: I.V. Start: 4:18 PM Stop: 4:18 PM Medication: Fentanyl Amount: 25 mcg Route: I.V. Start: 4:19 PM Stop: 4:19 PM Medication: Versed Amount: 1 mg Route: I.V. Start: 4:21 PM Stop: 4:21 PM Medication: Nitrogylcerin Amount: 200 mcg Route: I.A. Start: 4:27 PM Stop: 4:27 PM Medication: Heparin Amount: 5000 units Route: I.V. Start: 4:42 PM Stop: 4:42 PM Medication: Versed Amount: 1 mg Route: I.V. Start: 5:01 PM Stop: 5:01 PM Medication: Nitrogylcerin Amount: 200 mcg Route: I.A. Start: 5:02 PM Stop: 5:02 PM Medication: Versed Amount: 1 mg Route: I.V. Start: 5:09 PM Stop: 5:09 PM Medication: Fentanyl Amount: 25 mcg Route: I.V. Start: 5:14 PM Stop: 5:14 PM Medication: Versed Amount: 1 mg Route: I.V. Start: 5:14 PM Stop: 5:14 PM Medication: Fentanyl Amount: 25 mcg Route: I.V. I, the attending physician, have reviewed and verified all procedure medications. Yes, all medications given per verbal order History/Risk Factors Hypertension: No Dyslipidemia: Yes Peripheral Arterial Disease (PAD): No Myocardial Infarction (OK): No Obesity: Yes Renal Disease: No Prior Interventions PCI: No CABG: No Valve Surgery: No Report Signatures Finalized by Gretchen Hale MD on 12/25/2022 12:55 PM
[2022-12-23] MEDS: aspirin 325 mg Tablet PO (11:38)
--- NOTE | 2022-12-23 12:51 | PM.PN ---
Subjective Subjective: Currently chest pain-free. Plan to undergo coronary angiogram later today. Vitals/I&O/Wt Last Vital Signs Temp 97.8 F 12/23/22 12:00 Pulse 55 L 12/23/22 12:00 Resp 22 H 12/23/22 12:00 BP 112/66 12/23/22 12:00 Pulse Ox 94 12/23/22 12:00 O2 Del Method Room Air 12/23/22 12:00 12/22/22 12/23/22 12/23/22 22:59 06:59 14:59 Intake Total 354 / 354 0 / 354 Balance 354 / 354 0 / 354 Weight last 48 hrs Weight 104.326 kg Physical Exam Narrative: General: No acute distress, AO x3 HEENT: PERRLA, pupils bilaterally equal and reactive, pallors not present Chest: Normal vesicular breath sounds, no added sounds, equal good air entry bilaterally CVS: S1-S2 regular, no murmurs, no tachycardia, no gallops, no rubs Abdomen: Soft, nontender, no organomegaly, bowel sounds present Neuro: No focal deficits, no facial deformity, AO x3, power 5/5 in all limbs Data 12/23/22 03:36 12/23/22 03:36 A&P Assessment and plan (1) Chest pain: (2) Dyslipidemia: (3) Abnormal stress ECG with treadmill: Plan 42 year old male with PMH of dyslipidemia and abnormal EKG response to treadmill exercise came in today with c/o shoulder blade pain that started on Friday and latter he also started having lt arm pain,he decribe the shoulder blade pain as pressure like intermittent in nature lasting about 30 mins,denied any associated , palpitation, diaphoresis,nausea,vomitting, sob, fever,cough.He does compalin of SOB with exertion particularly when he is carrying some weight and walking. Assessment : Chest Pain: Recent : excercise treadmill test which showed Positive EKG response to treadmill exercise with 2 mm horizontal to upsloping ST depression in anterior leads.? No exercise-induced chest pain or cardiac arrhythmia.Excellent exercise tolerance, attained a maximum of 10.2 METs.? Baseline normal blood pressure with normal response to exercise. EKG today has shown : Sinus Bradycardia, Troponin Trend : is unremarkable. Xray chest is unremarkable. NPO After midnight Dyslipidemia: Continue lipitor 20 mg po daily Attestations Medical Necessity Statement*: planned coronary angiogram today Coding Level of Care Code Acute Code for Chg Fwd Diagnoses Chest pain R07.9 Dyslipidemia E78.5 Abnormal stress ECG with treadmill R94.39
[2022-12-23] MEDS: sodium chloride 0.9% 1,000 ML 50 ML IV (15:12)
[2022-12-23] MEDS: diphenhydrAMINE 50 mg Capsule PO (15:12)
[2022-12-23] MEDS: sodium chloride 0.9% 1,000 ML 100 ML IV (19:00)
[2022-12-23 19:57] LABS: Partial Thromboplastin Time 42.6 SECONDS (23.9-36.7)
[2022-12-23] MEDS: atorvastatin 40 mg Tablet 20 MG PO (22:17)
[2022-12-23] MEDS: fluoxetine 20 mg Capsule PO (22:18)
--- NOTE | 2022-12-23 22:32 | PC.NURSE ---
initiated sheath pull at 2146 per protocol, homeostasis achieved immediately. maintained pressure for 20 minutes. Vital signs WNL. Site dressed with folded 4x4 and bio-occlusive dressing. Initiated TR removal at 2130 per protocol, band removed at 2210. dressed site with folded 4x4 covered with bio-occlusive dressing. No s/s of bleeding our hemotoma formation. Instructed patient on site care and restrictions, patient verbalized understanding. Continue to monitor.
[2022-12-24] VITALS: BP 110/70; PULSE 58; RESP 16; TEMP 36.6; O2SAT 94
[2022-12-24 04:00] VITALS: BP 101/67; PULSE 55; RESP 16; TEMP 36.8; O2SAT 95
[2022-12-24 05:49] VITALS: PULSE 50
[2022-12-24 05:55] LABS: Basophils % 0.3 %; Eosinophils # 0.1 10^3/uL (0.0-0.8); Eosinophils % 0.9 %; Lymphocytes # 1.9 10^3/uL (0.8-4.8); Lymphocytes % 28.2 %; Mean Corpuscular HGB Conc 34.1 g/dL (30.0-36.0); Mean Corpuscular Hemoglobin 30.7 pg (28.0-34.0); Mean Platelet Volume 11.9 fL (7.4-10.4); Monocytes # 0.4 10^3/uL (0.2-0.9); Monocytes % 5.4 %; Neutrophils # 4.42 10^3/uL (1.8-7.7); Neutrophils % 64.9 %; Nucleated Red Blood Cells % 0 %; Platelet Count 179 10^3/cmm (130-400); Red Blood Count 4.89 10^6/uL (4.1-5.3); White Blood Count 6.8 10^3/uL (4.0-10.0)
[2022-12-24 06:17] LABS: Anion Gap 13.4 (5-19); Blood Urea Nitrogen 11 mg/dL (6-20); Calcium 9.1 mg/dL (8.5-10.5); Carbon Dioxide 26 mmol/L (22-29); Chloride 105 mmol/L (98-107); Glomerular Filtration Rate 91.7 mL/min (90-130); Glucose 116 mg/dL (65-115); Osmolality Calculated 290 mOsm/kg (285-295); Potassium 4.4 mmol/L (3.5-5.1); Sodium 140 mmol/L (136-145)
[2022-12-24 08:00] VITALS: BP 120/88; PULSE 61; RESP 15; O2SAT 93
--- NOTE | 2022-12-24 08:19 | P.PN_ITS ---
Subjective Subjective: Normal coronaries on [facility] yesterday. slow flow in LAD Medications: Reviewed: Yes Vitals/I&O/Wt Last Vital Signs Temp 98.2 F 12/24/22 04:00 Pulse 50 L 12/24/22 05:49 Resp 16 12/24/22 04:00 BP 101/67 12/24/22 04:00 Pulse Ox 95 12/24/22 04:00 O2 Del Method Nasal Cannula 12/24/22 04:00 12/23/22 12/24/22 12/24/22 22:59 06:59 14:59 Intake Total 355 / 355 1150 / 1505 Balance 355 / 355 1150 / 1505 Weight last 48 hrs Weight 230 lb Physical Exam Const: COMMON NORMALS: no acute distress, patient oriented x3 and alert GENERAL APPEARANCE: cooperative, comfortable, well kempt and well hydrated HENMT: COMMON NORMALS: hearing grossly normal bilaterally, external ears normal and moist oral mucous membranes FACE & SINUS: normal facial exam NOSE: No nasal discharge present EXTERNAL EAR: Yes external ears normal MOUTH: lip normal Eye: COMMON NORMALS: EOMs intact bilaterally and no scleral icterus GENERAL EYE: appearance normal, both eyes and all related structures ALIGNMENT: Yes alignment normal Neck/C-Spine: COMMON NORMALS: supple and no JVD GENERAL: Yes normal visual inspection CAROTIDS: Yes normal carotid upstroke Lymph: LYMPHATIC: no lymphadenopathy noted Chest: COMMONS NORMALS: normal inspection of the chest and normal palpation of entire chest wall CHEST: Yes Symmetrical chest wall rise and No tenderness Resp: COMMON NORMALS: clear to auscultation bilaterally EFFORT & INSPECTION: Yes able to speak in complete sentences, No tachypneic, No respiratory distress, No pursed lip breathing, No labored and No Actively coughing AUSCULTATION: clear to auscultation bilaterally, no crackles, no rales, no rhonchi and no wheezes Cardio: COMMON NORMALS: no JVD, regular rate, regular rhythm, S1 normal heart sound present, S2 normal heart sound present and Peripheral pulses 2+ throughout PALPATION: normal PMI RATE: regular rate RHYTHM: regular rhythm HEART SOUNDS: S1 normal heart sound present, S2 normal heart sound present, no click, no gallops and no murmurs BRUITS: no carotid bruits PERIPHERAL PULSES: Peripheral pulses 2+ throughout, radial pulses present, posterior tibial pulses present and dorsalis pedis present GI: COMMON NORMALS: Soft to palpation AUSCULTATION: Yes normoactive bowel sounds PALPATION: Yes Soft to palpation, No Tenderness to palpation present (GI), No Guarding due to palpation present (GI) and No Rigid due to palpation PERCUSSION: tympanic to percussion Extremity: GENERAL: No clubbing, No cyanosis, No edema and No pallor OTHER: R radial and femoral access sites with no bruising or hematoma Neuro: COMMON NORMALS: patient oriented x3, CN's II-XII intact bilaterally and no focal motor deficits SENSORIUM/ORIENTATION: Yes alert Psych: COMMON NORMALS: Normal thought process present and speech normal APPEARANCE: Yes well kempt SPEECH: Yes normal speech MOOD & AFFECT: Yes euthymic mood THOUGHT PROCESS: Normal thought process present THOUGHT CONTENT: Yes Normal thought content present Skin: COMMON NORMALS: no rashes or lesions noted and no petechiae GENERAL SKIN EXAM: no rashes or lesions noted Data 12/24/22 05:27 12/24/22 05:27 A&P Assessment and plan (1) Chest pain: Normal coronaries on cath. slow flow in LAD may suggest endothelial dysfunction -advised on cessation of tobacco chewing. may continue ASA 81 mg daily -alternate etiology of chest and shoulder blade discomfort needs to be looked into -I will defer that to his PCP. (2) Abnormal stress ECG with treadmill: (3) Dyslipidemia: Plan Bradycardia Tobacco abuse Attestations Medical Necessity Statement*: stable to be discharged Time Spent in Patient Care: 16 - 35 minutes Coding Level of Care Code Acute Code for [facility] Diagnoses Chest pain R07.9 Abnormal stress ECG with treadmill R94.39 Dyslipidemia E78.5
[2022-12-24] MEDS: pantoprazole DR 40 mg Tablet PO (08:51)
--- NOTE | 2022-12-24 11:19 | PM.DCS ---
Discharge Providers Date of Admission: 12/22/22 16:24 Date of Discharge: December 24, 2022 Attending Provider at Admission: Capo Mccollum MD Attending Provider at Discharge: Eve Do MD Primary Care Provider: JACK Solis Diagnoses at Discharge Discharge Diagnosis (1) Chest pain: Status: Acute (2) Abnormal stress ECG with treadmill: Status: Acute (3) Dyslipidemia: Status: Acute Reason for Visit Reason for Visit: Chest Pain, Left arm numbness Hospital Course Hospital Course Percy Nava is a 42 year old male with PMHx of dyslipidemia, GERD and recently abnormal?treadmill stress test was admitted to the hospital on December 22, 2022 after presenting with shoulder blade pain that was radiating into his left arm. It was described as intermittent pressure lasting about 30 minutes or so. His resting EKG showed some sinus bradycardia. He had a flat troponin trend. Given his recently abnormal stress test he was taken for a left heart cath on December 23, 2022. Normal coronaries were encountered with slow flow in the LAD. This may be suggestive of endothelial dysfunction. He was advised cessation of tobacco chewing. Chest x-ray did not show any cardiopulmonary abnormality. His chest pain is resolved during his stay in the hospital. No respiratory complaints, low probability of PE. He is being discharged today with recommendations for aspirin 81 mg daily and as needed nitrates. To continue rosuvastatin and pantoprazole. Physical Exam Narrative: General: No acute distress, AO x3 HEENT: PERRLA, pupils bilaterally equal and reactive, pallors not present Chest: Normal vesicular breath sounds, no added sounds, equal good air entry bilaterally CVS: S1-S2 regular, no murmurs, no tachycardia, no gallops, no rubs Abdomen: Soft, nontender, no organomegaly, bowel sounds present Neuro: No focal deficits, no facial deformity, AO x3, power 5/5 in all limbs Discharge Data Studies Completed and Pending Completed Studies During Hospitalization Category Date Time Status XR chest 1V portable [id number] Stat Exams 12/22/22 11:24 Completed CV. echo complete* [id number] Routine Ultrasound 12/22/22 16:30 Completed Pending at discharge Category Date Time Status [employer]OR request for service Routine Exams 12/23/22 10:56 Taken Basic Metabolic Panel AM LABS Lab 12/25/22 04:00 Ordered Complete Blood Count w/Auto AM LABS Lab 12/25/22 04:00 Ordered Radiology Impressions Chest X-Ray 12/22/22 11:24 IMPRESSION: No acute cardiopulmonary abnormality. Laboratory Results WBC 6.8 10^3/uL (4.0-10.0) 12/24/22 05:27 RBC 4.89 10^6/uL (4.1-5.3) 12/24/22 05:27 Hgb 15.0 g/dL (11.7-16.6) 12/24/22 05:27 Hct 44.0 % (42.0-52.0) 12/24/22 05:27 MCV 90.0 fl (80-94) 12/24/22 05:27 MCH 30.7 pg (28.0-34.0) 12/24/22 05:27 MCHC 34.1 g/dL (30.0-36.0) 12/24/22 05:27 RDW 12.0 % (12.1-15.1) L 12/24/22 05:27 Plt Count 179 10^3/cmm (130-400) 12/24/22 05:27 MPV 11.9 fL (7.4-10.4) H 12/24/22 05:27 Neut % (Auto) 64.9 % 12/24/22 05:27 Lymph % (Auto) 28.2 % 12/24/22 05:27 [place] % (Auto) 5.4 % 12/24/22 05:27 Eos % (Auto) 0.9 % 12/24/22 05:27 Baso % (Auto) 0.3 % 12/24/22 05:27 Neut # (Auto) 4.42 10^3/uL (1.8-7.7) 12/24/22 05:27 Lymph # (Auto) 1.9 10^3/uL (0.8-4.8) 12/24/22 05:27 [place] # (Auto) 0.4 10^3/uL (0.2-0.9) 12/24/22 05:27 Eos # (Auto) 0.1 10^3/uL (0.0-0.8) 12/24/22 05:27 Baso # (Auto) 0.0 10^3/uL (0.0-0.1) 12/24/22 05:27 Nucleated RBC % (auto) 0 % 12/24/22 05:27 Nucleated RBCs # 0.0 /100WBC 12/24/22 05:27 APTT 42.6 SECONDS (23.9-36.7) H 12/23/22 19:28 Sodium 140 mmol/L (136-145) 12/24/22 05:27 Potassium 4.4 mmol/L (3.5-5.1) 12/24/22 05:27 Chloride 105 mmol/L (98-107) 12/24/22 05:27 Carbon Dioxide 26 mmol/L (22-29) 12/24/22 05:27 Anion Gap 13.4 (5-19) 12/24/22 05:27 BUN 11 mg/dL (6-20) 12/24/22 05:27 Creatinine 0.9 mg/dL (0.7-1.2) 12/24/22 05:27 GFR Calculation 91.7 mL/min (90-130) 12/24/22 05:27 Glucose 116 mg/dL (65-115) H 12/24/22 05:27 Estimat Average Glucose 105 12/23/22 03:36 Hemoglobin A1c 5.3 % (4.0-6.0) 12/23/22 03:36 Calculated Osmolality 290 mOsm/kg (285-295) 12/24/22 05:27 Calcium 9.1 mg/dL (8.5-10.5) 12/24/22 05:27 Total Bilirubin 1.0 mg/dL (0.15-1.2) 12/22/22 11:34 AST 23 U/L (0-40) 12/22/22 11:34 ALT 41 U/L (0-41) 12/22/22 11:34 Alkaline Phosphatase 95 U/L (40-130) 12/22/22 11:34 Troponin T Baseline 6 ng/L (0-15) 12/22/22 11:34 Troponin T 120 Minute 6.00 ng/L (0-15) 12/22/22 13:30 Delta Troponin T 0 ABS# (0-10) 12/22/22 13:30 Troponin T Hi Sens 6Hr 6.00 ng/L (0-15) 12/22/22 17:50 Troponin T Hi Sens 6Hr Delta 0 ng/L (0-12) 12/22/22 17:50 NT-Pro-B Natriuret Pep 36 pg/mL (0-125) 12/22/22 11:34 Total Protein 7.1 g/dL (6.6-8.7) 12/22/22 11:34 Albumin 4.4 g/dL (3.5-5.2) 12/22/22 11:34 Globulin 2.7 g/dL (1.3-4.6) 12/22/22 11:34 Triglycerides 149 mg/dL (0-150) 12/23/22 03:36 Cholesterol 155 mg/dL (0-200) 12/23/22 03:36 LDL Cholesterol, Calc 94 mg/dL (50-129) 12/23/22 03:36 HDL Cholesterol 31 mg/dL (60-100) L 12/23/22 03:36 LDL/HDL Ratio 3.03 RATIO (0.00-3.22) 12/23/22 03:36 Cholesterol/HDL Ratio 5.00 mg/dL (1.0-5.00) 12/23/22 03:36 Lipase 37 U/L (13-60) 12/22/22 11:34 TSH 1.38 uIU/mL (0.27-4.20) 12/23/22 03:36 Vitals Last Vital Signs Temp 98.2 F 12/24/22 04:00 Pulse 61 12/24/22 08:00 Resp 15 12/24/22 08:00 BP 120/88 12/24/22 08:00 Pulse Ox 93 12/24/22 08:00 O2 Del Method Room Air 12/24/22 08:00 Discharge Plan Discharge Patient Disposition: Home Condition: Stable Prescriptions: New aspirin 81 mg capsule 81 mg PO DAILY Qty: 30 0RF nitroglycerin 0.4 mg Tablet, Sublingual 0.4 mg sublingual Q5M PRN (Reason: Chest Pain) 30 Days Qty: 30 0RF Continued rosuvastatin 5 mg tablet 5 mg PO BEDTIME fluoxetine 20 mg capsule 20 mg PO BEDTIME pantoprazole 40 mg tablet,delayed release (DR/EC) 40 mg PO BID Discharge Orders: Discharge Order (Routine); Ordered 12/24/22 Ordered By: Eve Do Referrals: Candice Sainz FNP [Nurse Practitioner] - 01/01/23 8:45 am Mikayla Adkins FNP [Primary Care Provider] - 2 weeks Discharge Diet: Cardiac and Low Cholesterol Discharge Activity: Resume usual activity Patient Instructions: Opioid Safety Discharge Attestations Time Spent in Discharge Care*: greater than 30 min Quality Metrics Clinical Quality Measures [ No reported AMI, CVA or VTE this stay] Coding Level of Care Code Acute Code for Chg Fwd Diagnoses Chest pain R07.9 Abnormal stress ECG with treadmill R94.39 Dyslipidemia E78.5
[2022-12-24 11:40] VITALS: BP 120/88; PULSE 61; RESP 15; O2SAT 93
--- NOTE | 2022-12-24 13:01 | PC.NURSE ---
Discharge Note Patient discharged to home via POV accompanied by spouse. Discharge instructions reviewed with patient and/or fulfillment representative. Mobile pharmacy medications and/or prescriptions provided. Belongings/home medications returned.
== END 2022-12-24 13:02 | disposition home or self-care (01) ==
LOC: ER 15:00 → CSU 12-23 06:04
PROVIDERS: Internal Medicine Cardiovascular Disease; Admitting Provider Internal Medicine; Emergency Provider Emergency Medicine; PCP Nurse Practitioner Family; Visit Provider Student in an Organized Health Care Education/Training Program
DX: R07.89 Other chest pain (principal); E78.5 Hyperlipidemia, unspecified; R94.39 Abnormal result of other cardiovascular function study; R00.1 Bradycardia, unspecified; K21.9 Gastro-esophageal reflux disease without esophagitis; F17.290 Nicotine dependence, other tobacco product, uncomplicated
CPT/HCPCS: 36415; 71045; 80048; 80053; 80061; 83036; 83690; 83880; 84443; 84484; 85025; 85730; 93005; 93306; 93458; 96372; 96376; 99152; 99153; 99285; C1769; C1887; C1894; G0378; J1644; J1650; J2250; J3010; J3490; J7030; Q0163; Q9967

== ENCOUNTER → 2023-01-01 09:17 | Outpatient (BNVA) | payer BC, SELFPAY | PROVIDERS: PCP Nurse Practitioner Family; Visit Provider Nurse Practitioner Family | DX: R07.9 Chest pain, unspecified (principal) | CPT/HCPCS: 36415; 80048 ==

== ENCOUNTER 2024-03-23 09:35 | Emergency (ER) | payer BC, SELFPAY ==
--- NOTE | 2024-03-23 09:48 | W.ED.ABDPA2 ---
HPI - Abdominal Pain General: Chief Complaint: Abdominal Pain Stated Complaint: right abd pain BC sent Time Seen by Provider: 03/23/24 09:47 Source: patient Mode of arrival: ambulatory Limitations: no limitations History of Present Illness: Patient is a nice 44-year-old male who presents to ED today with a complaint of right-sided abdominal pain over the past 3 days. He states pain has been constant but he will get brief (few minutes) exacerbations of severe pain. He has had some mild nausea but no episodes of emesis. Bowel movements have been normal. No fevers. He does not feel like pain is affected by eating. Pain can be improved by sitting real still . Denies previous abdominal surgeries. He is reportedly seen at [facility] and referred to the emergency department for further evaluation. Denies CVA pain or urinary symptoms. MD elicited complaint: abdominal pain Pertinent past history: none Onset (ago): day(s) Pain Consistency: constant Location: RUQ and RLQ Severity: mild Pain scale (0-10): 3 Radiation: none Migration to: no migration Exacerbating factors: nothing Relieving factors: other (sitting still) Associated Symptoms: Reports nausea; Denies chills, GI cramping, diarrhea, dysuria, fever(s), hematochezia, melena and vomiting Related Data Home Medications Medication Instructions Recorded Confirmed fluoxetine 20 mg capsule 20 mg PO BEDTIME 11/12/22 03/23/24 pantoprazole 40 mg tablet,delayed 40 mg PO BID 12/22/22 03/23/24 release Allergies Allergy/AdvReac Type Severity Reaction Status Date / Time Penicillins Allergy Unknown Verified 01/01/23 07:35 Review of Systems Const: Denies: fever(s), chills, body aches, fatigue or malaise Card: Denies: chest pain Resp: Denies: dyspnea GI: Reports: abdominal pain and nausea; Denies: vomiting, diarrhea, GI cramping, hematochezia or melena : Denies: flank pain, difficulty urinating, dysuria, urinary frequency, urinary urgency or urinary hesitancy Musc: Denies: neck pain, back pain, extremity pain, extremity swelling, joint pain or joint swelling Skin/Breast: Denies: rash Neuro: Denies: headache(s), numbness in extremities, weakness in extremities, sensory changes or dizziness PFS ED PFSH: Medical History Urolithiasis Anxiety Hx of nephrolithotomy with removal of calculi Surgical History Status post extracorporeal shock wave therapy H/O esophagogastroduodenoscopy Grade a esophagitis Family History Father Cancer BLADDER Mother , IN HER 30'S Cancer MULTIPLE MYELOMA Denies family history of Anesthesia complication Bleeding disorder Social History Smoking and tobacco/nicotine status: never used tobacco/nicotine Alcohol intake: never Marital status: Current occupational status: employed Physical Exam Const: COMMON NORMALS: no acute distress, patient oriented x3, no limitations, alert and well nourished GENERAL APPEARANCE: cooperative NUTRITIONAL APPEARANCE: overweight (BMI 35.9) ORIENTATION/CONSCIOUSNESS: Yes awake, Yes oriented to person, Yes oriented to place and Yes oriented to time Eye: COMMON NORMALS: no scleral icterus Chest: COMMONS NORMALS: normal inspection of the chest and normal palpation of entire chest wall Resp: COMMON NORMALS: normal respiratory effort and clear to auscultation bilaterally AUSCULTATION: clear to auscultation bilaterally Cardio: COMMON NORMALS: regular rate and regular rhythm RATE: regular rate RHYTHM: regular rhythm GI: COMMON NORMALS: Normal to inspection, nondistended, normoactive bowel sounds present, Soft to palpation, No hepatosplenomegaly present and no masses INSPECTION: Yes normal to inspection AUSCULTATION: Yes normoactive bowel sounds PALPATION: Yes Soft to palpation, Yes Tenderness to palpation present (GI) (RUQ and R mid abdomen; no obvious McBurney's tenderness), No Guarding due to palpation present (GI), No Rigid due to palpation and Yes No hepatosplenomegaly present : COMMON NORMALS: Yes no CVA tenderness BLADDER/KIDNEY EXAM: Yes no CVA tenderness Back/Pelvis: COMMON NORMALS: no CVA tenderness Neuro: COMMON NORMALS: patient oriented x3 SENSORIUM/ORIENTATION: Yes alert, Yes oriented to person, Yes oriented to place and Yes oriented to time Skin: COMMON NORMALS: no rashes or lesions noted GENERAL SKIN EXAM: no rashes or lesions noted Course Vital Signs: Vital signs: Vital Signs Temperature 98.9 F 03/23/24 09:58 Pulse Rate 58 L 03/23/24 10:07 Respiratory Rate 18 03/23/24 09:58 Blood Pressure 119/80 03/23/24 10:07 Pulse Oximetry 93 03/23/24 10:07 Oxygen Delivery Me thod Room Air 03/23/24 10:07 MDM - Abdominal Pain Medical Decision Making Patient's vital signs are stable. His blood work is completely unremarkable. UA is clear. US of his gallbladder somewhat limited due to bowel gas essentially normal. CT scan of his abdomen and pelvis showing a normal appendix. He does have a fatty liver. Gallbladder appears normal but radiologist did comment on tiny trace of increased attenuation that could be sludge or tiny micro calculi. Remainder of skin is unremarkable. Exact etiology of discomfort is unknown. Recommend he follow-up with his primary care provider later this week/early next week for re-evaluation. Strict return to ED precautions given. Did discuss possible outpatient HIDA scan for possible biliary colic like symptoms. Medical Records I reviewed the patient's medical records. Lab Data I reviewed the patient's lab results. 03/23/24 11:04 03/23/24 11:04 Labs/Radiology: Radiology Impressions Abdomen/Pelvis CT 03/23/24 09:52 IMPRESSION: 1. Diffuse fatty infiltration of the liver 2. Normal appendix. No evidence of acute appendicitis. 3. Gallbladder appears normal. Tiny trace of increased attenuation in the dependent gallbladder likely gallbladder sludge or tiny microcalculi. 4. Normal renal parenchymal enhancement. No hydronephrosis in either kidney. 5. No obstructing renal or ureteral calculi. Gallbladder Ultrasound 03/23/24 09:52 IMPRESSION: Exam is somewhat limited due to bowel gas. 1. Normal liver. 2. Normal gallbladder. 3. Normal common bile duct. 4. No hydronephrosis in either kidney. Laboratory Results WBC 4.71 10^3/uL (3.29-11.43) 03/23/24 11:04 RBC 4.59 10^6/uL (3.85-5.65) 03/23/24 11:04 Hgb 14.20 g/dL (11.27-16.99) 03/23/24 11:04 Hct 41.9 % (37-53) 03/23/24 11:04 MCV 91.3 fl (82-101) 03/23/24 11:04 MCH 30.9 pg (27-33) 03/23/24 11:04 MCHC 33.9 g/dL (30-55) 03/23/24 11:04 RDW 11.9 % (12.1-15.1) L 03/23/24 11:04 Plt Count 197 10^3/cmm (157-399) 03/23/24 11:04 MPV 11.1 fL (7.4-10.4) H 03/23/24 11:04 Neut % (Auto) 51.2 % 03/23/24 11:04 Lymph % (Auto) 38.2 % 03/23/24 11:04 [place] % (Auto) 7.9 % 03/23/24 11:04 Eos % (Auto) 1.9 % 03/23/24 11:04 Baso % (Auto) 0.6 % 03/23/24 11:04 Neut # (Auto) 2.41 10^3/uL (1.8-7.7) 03/23/24 11:04 Lymph # (Auto) 1.8 10^3/uL (0.8-4.8) 03/23/24 11:04 [place] # (Auto) 0.4 10^3/uL (0.2-0.9) 03/23/24 11:04 Eos # (Auto) 0.1 10^3/uL (0.0-0.8) 03/23/24 11:04 Baso # (Auto) 0.0 10^3/uL (0.0-0.1) 03/23/24 11:04 Nucleated RBC % (auto) 0 % 03/23/24 11:04 Nucleated RBCs # 0.0 /100WBC 03/23/24 11:04 Sodium 139 mmol/L (136-145) 03/23/24 11:04 Potassium 4.4 mmol/L (3.5-5.1) 03/23/24 11:04 Chloride 106 mmol/L (98-107) 03/23/24 11:04 Carbon Dioxide 24 mmol/L (22-29) 03/23/24 11:04 Anion Gap 13.4 (5-19) 03/23/24 11:04 BUN 6 mg/dL (6-20) 03/23/24 11:04 Creatinine 0.8 mg/dL (0.7-1.2) 03/23/24 11:04 GFR Calculation 104.1 mL/min (90-130) 03/23/24 11:04 Glucose 88 mg/dL (65-115) 03/23/24 11:04 Calculated Osmolality 285 mOsm/kg (285-295) 03/23/24 11:04 Calcium 8.3 mg/dL (8.5-10.5) L 03/23/24 11:04 Total Bilirubin 0.6 mg/dL (0.15-1.2) 03/23/24 11:04 AST 26 U/L (0-40) 03/23/24 11:04 ALT 39 U/L (0-41) 03/23/24 11:04 Alkaline Phosphatase 102 U/L (40-130) 03/23/24 11:04 Total Protein 6.3 g/dL (6.6-8.7) L 03/23/24 11:04 Albumin 3.8 g/dL (3.5-5.2) 03/23/24 11:04 Globulin 2.5 g/dL (1.3-4.6) 03/23/24 11:04 Lipase 38 U/L (13-60) 03/23/24 11:04 Urine Color Yellow (Yellow) 03/23/24 09:49 Urine Appearance Clear (CLEAR) 03/23/24 09:49 Urine pH 8.0 (5-7) A 03/23/24 09:49 Ur Specific [place] 1.019 (1.005-1.030) 03/23/24 09:49 Urine Protein Negative (Negative) 03/23/24 09:49 Urine Glucose (UA) Negative (Normal) 03/23/24 09:49 Urine Ketones Negative (Negative) 03/23/24 09:49 Urine Blood Negative (Negative) 03/23/24 09:49 Urine Nitrate Negative (Negative) 03/23/24 09:49 Urine Bilirubin Negative (Negative) 03/23/24 09:49 Urine Urobilinogen 1.0 mg/dL (Negative) 03/23/24 09:49 Ur Leukocyte Esterase Negative (Negative) 03/23/24 09:49 Urine RBC 0-2 /hpf (0-2) 03/23/24 09:49 Urine WBC 0-5 /hpf (0-5) 03/23/24 09:49 Ur Squamous Epith Cells 0-5 /hpf (0-5) 03/23/24 09:49 Amorphous Sediment Not Reportable 03/23/24 09:49 Urine Bacteria None seen /hpf (NONE) 03/23/24 09:49 Hyaline Casts 0.81 /lpf 03/23/24 09:49 All radiology interpretation(s) finalized by discharge Discharge Plan Discharge Patient Disposition: Home Clinical Impression: Right-sided abdominal pain of unknown etiology Condition: Stable Prescriptions: No Action fluoxetine 20 mg capsule 20 mg PO BEDTIME pantoprazole 40 mg tablet,delayed release (DR/EC) 40 mg PO BID Discharge Orders: Discharge ED (Routine); Ordered 03/23/24 Ordered By: Liliana Roblse Referrals: Mikayla Adkins FNP [Primary Care Provider] - Patient Instructions: Abdominal Pain (ED) Activity Restrictions/Additional Instructions: As we discussed, your emergency department evaluation today did not reveal any obvious etiology to your right-sided abdominal pain. I would like you to follow-up with your primary care provider by the end of the week/early next week for continued symptoms. You need to return to the emergency department for worsening abdominal pain, repetitive episodes of vomiting, changes to your bowel movements, fevers, yellowing to your skin or eyes, generally feeling worse or unwell, or any other concerns you may have. I hope you begin to feel better soon. Coding Level of Care Code ED Transit Bus Operator for Lashell Mchugh
--- NOTE | 2024-03-23 09:52 | CT_ITS ---
WS: [id number] CT ABDOMEN PELVIS TECHNIQUE: Contrast-enhanced CT of the abdomen and pelvis with coronal and sagittal reformatted image s. CLINICAL INFORMATION: R sided abdominal pain COMPARISON: None. DLP: 1086.[address] scans at [facility] use at least one of these dose optimization techniques: automated e xposure control; mA and/or kV adjustment per patient size (includes targeted exams where dose is matc hed to clinical indication); or iterative reconstruction. FINDINGS: Diffuse fatty infiltration of the liver. Adrenal glands are normal. Normal renal parenchym al enhancement. Lung bases are well aerated. Calcified granuloma LEFT lower lobe. Normal GE junction . Stomach appears normal. Adrenal glands are normal. Normal renal parenchymal enhancement. No hydrone phrosis. Tiny LEFT renal cyst. Tiny nonobstructing RIGHT renal parenchymal calculus. Normal appendix in the RIGHT lower quadrant. No evidence of acute appendicitis. Tiny fat-containing u mbilical hernia. Small fat-containing LEFT inguinal hernia. Disc space narrowing worse at L4-L5 and L5-S1. CT/CT abdomen pelvis w con* [id number] IMPRESSION: 1. Diffuse fatty infiltration of the liver 2. Normal appendix. No evidence of acute appendicitis. 3. Gallbladder appears normal. Tiny trace of increased attenuation in the depe ndent gallbladder likely gallbladder sludge or tiny microcalculi. 4. Normal renal parenchymal enhancement. No hydronephrosis in either kidney. 5. No obstructing renal or ureteral calculi.
--- NOTE | 2024-03-23 09:52 | US_ITS ---
WS: [id number] ULTRASOUND ABDOMEN LIMITED CLINICAL INFORMATION: RUQ pain COMPARISON: None. FINDINGS: Liver Size: Normal. Craniocaudal length: 15.5 cm. Echogenicity: Normal. Surface nodularity: None. Mass (size and location): None. Bile ducts Intrahepatic ducts: Normal. Common bile duct diameter: 0.4 cm. Gallbladder Normal. Gallstones: None. Gallbladder sludge: None. Gallbladder wall thickening: None. Pericholecystic fluid: None. Sonographic Cunningham sign: Absent. Pancreas not well visualized Right kidney: Normal. Hydronephrosis: None. Size: 7.0 cm x 1.2 cm x 6.3 cm. Abdominal aorta and IVC Visualized portions are normal. Ascites: None. US/US gall bladder [id number] IMPRESSION: Exam is somewhat limited due to bowel gas. 1. Normal liver. 2. Normal gallbladder. 3. Normal common bile duct. 4. No hydronephrosis in either kidney.
[2024-03-23 09:58] VITALS: BP 127/74; PULSE 58; RESP 18; TEMP 37.2; O2SAT 96; BMI 35.9
[2024-03-23 10:07] VITALS: BP 119/80; PULSE 58; O2SAT 93
[2024-03-23 10:11] LABS: Bilirubin Urine Negative (Negative); Blood Urine Negative (Negative); Glucose Urine UA Negative (Normal); Ketones Urine Negative (Negative); Leukocyte Esterase Urine Negative (Negative); Nitrate Urine Negative (Negative); Protein Urine Negative (Negative); Specific Gravity, Urine 1.019 (1.005-1.030); Urine Appearance Clear (CLEAR); Urine Color Yellow (Yellow)
[2024-03-23 10:14] LABS: Add Urine Microscopic? YES; Bacteria Urine None Seen /hpf; Hyaline Casts Urine 0.81 /lpf; RBC Urine 0-2 /hpf (0-2); Squamous Epithelial Cell Urine 0-5 /hpf (0-5); WBC Urine 0-5 /hpf (0-5)
[2024-03-23] MEDS: iohexol 350 mg/mL 500 mL Btl (per mL) IV (10:43)
[2024-03-23 11:10] LABS: Basophils % 0.6 %; Eosinophils # 0.1 10^3/uL (0.0-0.8); Eosinophils % 1.9 %; Hematocrit 41.9 % (37-53); Lymphocytes # 1.8 10^3/uL (0.8-4.8); Lymphocytes % 38.2 %; Mean Corpuscular HGB Conc 33.9 g/dL (30-55); Mean Corpuscular Hemoglobin 30.9 pg (27-33); Mean Corpuscular Volume 91.3 fl (82-101); Mean Platelet Volume 11.1 fL (7.4-10.4); Monocytes # 0.4 10^3/uL (0.2-0.9); Monocytes % 7.9 %; Neutrophils # 2.41 10^3/uL (1.8-7.7); Neutrophils % 51.2 %; Nucleated Red Blood Cells % 0 %; Platelet Count 197 10^3/cmm (157-399); Red Blood Count 4.59 10^6/uL (3.85-5.65); Red Cell Distribution Width 11.9 % (12.1-15.1); White Blood Count 4.71 10^3/uL (3.29-11.43)
[2024-03-23 11:28] LABS: Alanine Aminotransferase 39 U/L (0-41); Albumin Level 3.8 g/dL (3.5-5.2); Alkaline Phosphatase 102 U/L (40-130); Anion Gap 13.4 (5-19); Aspartate Amino Transferase 26 U/L (0-40); Blood Urea Nitrogen 6 mg/dL (6-20); Calcium 8.3 mg/dL (8.5-10.5); Carbon Dioxide 24 mmol/L (22-29); Chloride 106 mmol/L (98-107); Creatinine Clr Calc Pharmacy 145.5029; Globulin 2.5 g/dL (1.3-4.6); Glomerular Filtration Rate 104.1 mL/min (90-130); Glucose 88 mg/dL (65-115); Lipase 38 U/L (13-60); Osmolality Calculated 285 mOsm/kg (285-295); Potassium 4.4 mmol/L (3.5-5.1); Sodium 139 mmol/L (136-145); Total Bilirubin 0.6 mg/dL (0.15-1.2); Total Protein 6.3 g/dL (6.6-8.7)
--- NOTE | 2024-03-23 11:33 | PC.PHAR ---
I removed the rosuvastatin and Asprin from patients list . Patient stated he no longer takes them .
[2024-03-23 12:11] VITALS: BP 107/73; PULSE 55; O2SAT 95
== END 2024-03-23 12:13 | disposition home or self-care (01) ==
PROVIDERS: Emergency Provider Physician Assistant; PCP Nurse Practitioner Family
DX: R10.9 Unspecified abdominal pain (principal)
CPT/HCPCS: 36415; 74177; 76705; 80053; 81001; 83690; 85025; 99285

== ENCOUNTER 2025-02-24 11:02 | Emergency (ER) | payer BC, SELFPAY ==
[2025-02-24 11:05] VITALS: BP 112/80; PULSE 72; RESP 18; TEMP 36.7; O2SAT 94
--- NOTE | 2025-02-24 11:20 | W.ED.ABDPA2 ---
HPI - Abdominal Pain General: Chief Complaint: Abdominal Pain Stated Complaint: Lower ABD Pain Time Seen by Provider: 02/24/25 11:07 History of Present Illness: 45-year-old male presents emergency room with right lower quadrant pain that began 2 days ago. Patient has right sided abdominal pain. Was identified by the nursing note as right lower quadrant however when I seen the patient he identifies more right upper quadrant it worsened overnight after eaten at home. He had a moderately fatty meal. He denies any dysuria urgency or frequency hematochezia melena hematemesis coffee-ground emesis or hematuria. Associated Symptoms: Denies chills, diarrhea, dysuria, fever(s), nausea and vomiting Related Data Home Medications ?Medication ?Instructions ?Recorded ?Confirmed fluoxetine 20 mg capsule 20 mg PO QPM 11/12/22 02/24/25 pantoprazole 40 mg tablet,delayed 40 mg PO QPM 12/22/22 02/24/25 release atorvastatin 20 mg tablet 20 mg PO QPM 02/24/25 02/24/25 Previous Rx's ?Medication ?Instructions ?Recorded hydrocodone 5 mg-acetaminophen 325 1 tab PO Q6H PRN pain #10 tabs 02/24/25 mg tablet promethazine 25 mg tablet 25 mg PO Q6H PRN nausea and 02/24/25 vomiting #20 tabs Allergies Allergy/AdvReac Type Severity Reaction Status Date / Time Penicillins Allergy Unknown Verified 01/01/23 07:35 Review of Systems Const: Denies: fever(s) or chills Card: Denies: chest pain Resp: Denies: dyspnea GI: Reports: abdominal pain; Denies: nausea, vomiting or diarrhea : Denies: dysuria, urinary frequency or urinary urgency Musc: Denies: neck pain or back pain Skin/Breast: Denies: rash PFSH ED PFSH: Medical History Urolithiasis Anxiety Hx of nephrolithotomy with removal of calculi Surgical History Status post extracorporeal shock wave therapy H/O esophagogastroduodenoscopy Grade a esophagitis Family History Father Cancer BLADDER Mother , IN HER 30'S Cancer MULTIPLE MYELOMA Denies family history of Anesthesia complication Bleeding disorder Social History Smoking and tobacco/nicotine status: never used tobacco/nicotine Alcohol intake: never Marital status: Current occupational status: employed Physical Exam Const: GENERAL APPEARANCE: cooperative ORIENTATION/CONSCIOUSNESS: Yes awake, Yes oriented to person, Yes oriented to place and Yes oriented to time HENMT: COMMON NORMALS: normocephalic, atraumatic and hearing grossly normal bilaterally HEAD & SCALP: normocephalic and atraumatic Resp: COMMON NORMALS: normal respiratory effort, No retractions, No use of accessory muscles and clear to auscultation bilaterally AUSCULTATION: clear to auscultation bilaterally Cardio: COMMON NORMALS: regular rate, regular rhythm and No murmurs present (Cardio) RATE: regular rate RHYTHM: regular rhythm GI: COMMON NORMALS: No hepatosplenomegaly present AUSCULTATION: Yes normoactive bowel sounds PALPATION: Yes Tenderness to palpation present (GI) Details: RUQ, No Guarding due to palpation present (GI) and Yes No hepatosplenomegaly present Extremity: COMMON NORMALS: normal to inspection, capillary refill normal, no clubbing, cyanosis or edema, no calf tenderness and no pedal edema Neuro: SENSORIUM/ORIENTATION: Yes oriented to person, Yes oriented to place and Yes oriented to time Skin: COMMON NORMALS: no rashes or lesions noted GENERAL SKIN EXAM: no rashes or lesions noted Course Vital Signs: Vital signs: Vital Signs Temperature 98.0 F 02/24/25 11:05 Pulse Rate 74 02/24/25 14:08 Respiratory Rate 18 02/24/25 11:05 Blood Pressure 99/73 02/24/25 14:08 Pulse Oximetry 92 02/24/25 14:08 Oxygen Delivery Me thod Room Air 02/24/25 11:05 MDM - Abdominal Pain Medical Decision Making Nonsurgical abdomen on exam. He appears to have biliary colic he has improved some. Laboratory test did not show any signs of abnormal liver functions renal function or urine. Will discharge patient home encourage bland diet to avoid recurrence of biliary colic. Set him up for HIDA scan and referral to general surgery Medical Records I reviewed the patient's medical records. Lab Data I reviewed the patient's lab results. 02/24/25 11:24 02/24/25 11:24 Labs/Radiology: Radiology Impressions Gallbladder Ultrasound 02/24/25 11:24 IMPRESSION: 1. Negative gallbladder. 2. Mild hepatic steatosis. 3. Echogenic pancreas consistent with fatty infiltration. Abdomen/Pelvis CT 02/24/25 12:28 IMPRESSION: 1. Normal appendix. 2. Small fat-containing umbilical hernia. 3. No acute findings in the abdomen or pelvis. Laboratory Results WBC 7.50 10^3/uL (3.29-11.43) 02/24/25 11:24 RBC 5.02 10^6/uL (3.85-5.65) 02/24/25 11:24 Hgb 15.70 g/dL (11.27-16.99) 02/24/25 11:24 Hct 44.3 % (37-53) 02/24/25 11:24 MCV 88.2 fl (82-101) 02/24/25 11:24 MCH 31.3 pg (27-33) 02/24/25 11:24 MCHC 35.4 g/dL (30-55) 02/24/25 11:24 RDW 12.0 % (12.1-15.1) L 02/24/25 11:24 Plt Count 205 10^3/cmm (157-399) 02/24/25 11:24 MPV 11.4 fL (7.4-10.4) H 02/24/25 11:24 Neut % (Auto) 61.7 % 02/24/25 11:24 Lymph % (Auto) 29.7 % 02/24/25 11:24 Pierce % (Auto) 6.4 % 02/24/25 11:24 Eos % (Auto) 1.5 % 02/24/25 11:24 Baso % (Auto) 0.4 % 02/24/25 11:24 Neut # (Auto) 4.63 10^3/uL (1.8-7.7) 02/24/25 11:24 Lymph # (Auto) 2.2 10^3/uL (0.8-4.8) 02/24/25 11:24 Pierce # (Auto) 0.5 10^3/uL (0.2-0.9) 02/24/25 11:24 Eos # (Auto) 0.1 10^3/uL (0.0-0.8) 02/24/25 11:24 Baso # (Auto) 0.0 10^3/uL (0.0-0.1) 02/24/25 11:24 Nucleated RBC % (auto) 0 % 02/24/25 11:24 Nucleated RBCs # 0.0 /100WBC 02/24/25 11:24 Sodium 138 mmol/L (136-145) 02/24/25 11:24 Potassium 3.8 mmol/L (3.5-5.1) 02/24/25 11:24 Chloride 104 mmol/L (98-107) 02/24/25 11:24 Carbon Dioxide 23 mmol/L (22-29) 02/24/25 11:24 Anion Gap 14.8 (5-19) 02/24/25 11:24 BUN 7 mg/dL (6-20) 02/24/25 11:24 Creatinine 0.7 mg/dL (0.7-1.2) 02/24/25 11:24 GFR Calculation 120.9 mL/min (90-130) 02/24/25 11:24 Glucose 98 mg/dL (65-115) 02/24/25 11:24 Calculated Osmolality 284 mOsm/kg (285-295) L 02/24/25 11:24 Calcium 9.1 mg/dL (8.5-10.5) 02/24/25 11:24 Total Bilirubin 0.7 mg/dL (0.15-1.2) 02/24/25 11:24 AST 23 U/L (0-40) 02/24/25 11:24 ALT 34 U/L (0-41) 02/24/25 11:24 Alkaline Phosphatase 96 U/L (40-130) 02/24/25 11:24 Total Protein 7.4 g/dL (6.6-8.7) 02/24/25 11:24 Albumin 4.2 g/dL (3.5-5.2) 02/24/25 11:24 Globulin 3.2 g/dL (1.3-4.6) 02/24/25 11:24 Lipase 52 U/L (13-60) 02/24/25 11:24 Urine Color Yellow (Yellow) 02/24/25 11:49 Urine Appearance Clear (CLEAR) 02/24/25 11:49 Urine pH 8.5 (5-7) A 02/24/25 11:49 Ur Specific [place] 1.014 (1.005-1.030) 02/24/25 11:49 Urine Protein Negative (Negative) 02/24/25 11:49 Urine Glucose (UA) Negative (Normal) 02/24/25 11:49 Urine Ketones Negative (Negative) 02/24/25 11:49 Urine Blood Negative (Negative) 02/24/25 11:49 Urine Nitrate Negative (Negative) 02/24/25 11:49 Urine Bilirubin Negative (Negative) 02/24/25 11:49 Urine Urobilinogen 1.0 mg/dL (Negative) 02/24/25 11:49 Ur Leukocyte Esterase Negative (Negative) 02/24/25 11:49 Urine RBC 0-2 /hpf (0-2) 02/24/25 11:49 Urine WBC 0-5 /hpf (0-5) 02/24/25 11:49 Ur Squamous Epith Cells 0-5 /hpf (0-5) 02/24/25 11:49 Amorphous Sediment Not Reportable 02/24/25 11:49 Urine Bacteria None seen /hpf (NONE) 02/24/25 11:49 Hyaline Casts 0-4 /lpf H 02/24/25 11:49 All radiology interpretation(s) finalized by discharge Discharge Plan Discharge Patient Disposition: Home Clinical Impression: Biliary colic Condition: Stable Prescriptions: New hydrocodone-acetaminophen 5-325 mg tablet 1 tab PO Q6H PRN (Reason: pain) Qty: 10 0RF promethazine 25 mg tablet 25 mg PO Q6H PRN (Reason: nausea and vomiting) Qty: 20 0RF No Action atorvastatin 20 mg tablet 20 mg PO QPM fluoxetine 20 mg capsule 20 mg PO QPM pantoprazole 40 mg tablet,delayed release (DR/EC) 40 mg PO QPM Discharge Orders: Discharge ED (Routine); Ordered 02/24/25 Ordered By: Slick Yoo Referrals: Mikayla Adkins FNP [Primary Care Provider, Nurse Practitioner] Discharge Diet: As Directed Discharge Activity: Increase activity as tolerated Patient Instructions: Abdominal Pain (ED), Biliary Dyskinesia (DC), Opioid Safety, Pain Management, Patient Portal & Bianka Instructions Activity Restrictions/Additional Instructions: Thank you for choosing [facility] for your healthcare needs today. It is very important that you follow up as instructed or that you return to the Emergency Department should you have concerns or if your condition changes or worsens in any way. Emergency department visits are focused on emergent conditions, in some cases you may require further evaluation on an outpatient basis. You were seen in the emergency room with complaints of abdominal pain. Based on your history and your exam findings suspect you have biliary dyskinesia. This is a condition where your gallbladder does not function correctly but imaging and laboratory test will be normal. It does cause the same pain as if it had stones. To evaluate for this will need to do a HIDA scan. Will schedule this for you and schedule follow-up with the general surgeon. Recommend that you double your pantoprazole to 1 pill twice a day for now. You are also given hydrocodone promethazine to use as needed. You should avoid foods that may trigger your gallbladder such as: Red meats citrus fruits tomato-based products fried foods fatty foods alcohol dairy products. (Please note that included in your discharge packet is information concerning opioid safety and pain management. This information is given to all patients were discharged from the ER regardless of their discharge diagnosis or the medicines they usually take or are prescribed.) Print Language: Puerto Rican Coding Level of Care Code ED Salon Stylist for Lashell Mchugh
--- NOTE | 2025-02-24 11:24 | US_ITS ---
WS: [id number] RIGHT UPPER QUADRANT ULTRASOUND HISTORY: Right upper quadrant abdominal pain COMPARISON: 03/23/2024 Liver: 15.9 cm in length. Normal size liver. Focal fatty sparing adjacent to the gallbladder. No intrahepatic duct dilatation. Portal Vein: Normal hepatopetal flow with monophasic waveform. Gallbladder: Normally distended gallbladder with no stones or wall thickening. CBD: 0.5 cm Pancreas: Echogenic pancreas. Right kidney: 11.5 cm in length. Normal size and echogenicity. No hydronephrosis or mass. Aorta and IVC: Unremarkable abdominal aorta and IVC. No ascites. US/US gall bladder [id number] IMPRESSION: 1. Negative gallbladder. 2. Mild hepatic steatosis. 3. Echogenic pancreas consistent with fatty infiltration.
[2025-02-24 11:28] LABS: Hematocrit 44.3 % (37-53); Hemoglobin 15.70 g/dL (11.27-16.99); Mean Corpuscular HGB Conc 35.4 g/dL (30-55); Mean Corpuscular Hemoglobin 31.3 pg (27-33); Mean Corpuscular Volume 88.2 fl (82-101); Nucleated Red Blood Cells % 0 %; Platelet Count 205 10^3/cmm (157-399); Red Blood Count 5.02 10^6/uL (3.85-5.65); White Blood Count 7.50 10^3/uL (3.29-11.43)
[2025-02-24 11:45] LABS: Alanine Aminotransferase 34 U/L (0-41); Albumin Level 4.2 g/dL (3.5-5.2); Alkaline Phosphatase 96 U/L (40-130); Anion Gap 14.8 (5-19); Aspartate Amino Transferase 23 U/L (0-40); Blood Urea Nitrogen 7 mg/dL (6-20); Calcium 9.1 mg/dL (8.5-10.5); Carbon Dioxide 23 mmol/L (22-29); Chloride 104 mmol/L (98-107); Creatinine Clr Calc Pharmacy 162.5116; Globulin 3.2 g/dL (1.3-4.6); Glucose 98 mg/dL (65-115); Lipase 52 U/L (13-60); Osmolality Calculated 284 mOsm/kg (285-295); Potassium 3.8 mmol/L (3.5-5.1); Sodium 138 mmol/L (136-145); Total Protein 7.4 g/dL (6.6-8.7)
[2025-02-24 11:51] VITALS: PULSE 68; O2SAT 94
--- OUTSIDE RECORDS SUMMARY | 2025-02-24 12:09 | XMS_ITS | Encounter Summary ---
Author Organization [facility] Address [address] [place] [address] Care Team Providers Care Resort Host Name Role Phone Promise Moses MD Primary Care Provider Encounter Details Date Type Department Care Team (Latest Contact Info) Description 12/26/1999 Outpatient Historical [facility] Medicine- [address] [phone] Juan F Corral MD [address] [phone] Abdominal pain, unspecified site (Primary Dx) Social History Tobacco Use Types Packs/Day Years Used Date Smoking Tobacco: Never Assessed Sex and Gender Information Value Date Recorded Sex Assigned at Not on file 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
--- OUTSIDE RECORDS SUMMARY | 2025-02-24 12:09 | XMS_ITS | Encounter Summary ---
Author Organization [facility] Address [address] [place] [address] Care Team Providers Care Business Systems Architect Name Role Phone Promise Moses MD Primary Care Provider Encounter Details Date Type Department Care Team (Latest Contact Info) Description 12/07/2001 Outpatient Historical [facility] Medicine- [address] [phone] Juan F Corral MD [address] [phone] MED EXAM NEC-ADMIN PURP (Primary Dx) Social History Tobacco Use Types Packs/Day Years Used Date Smoking Tobacco: Never Assessed Sex and Gender Information Value Date Recorded Sex Assigned at Not on file 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
--- OUTSIDE RECORDS SUMMARY | 2025-02-24 12:09 | XMS_ITS | Encounter Summary ---
Author Organization [facility] Address [address] [place] [address] Care Team Providers Care Electronic Game Developer Name Role Phone Promise Moses MD Primary Care Provider Encounter Details Date Type Department Care Team (Latest Contact Info) Description 07/18/2003 Outpatient Historical [facility] [address] [address] Ana Mckee, BICYCLE MESSENGER [address] [place] [phone] ABRASION HEAD (Primary Dx) Social History Tobacco Use Types Packs/Day Years Used Date Smoking Tobacco: Never Assessed Sex and Gender Information Value Date Recorded Sex Assigned at Not on file 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
--- OUTSIDE RECORDS SUMMARY | 2025-02-24 12:09 | XMS_ITS | Encounter Summary ---
Author Organization [facility] Address [address] [place] [address] Care Team Providers Care Lineman A Class Name Role Phone Promise Moses MD Primary Care Provider [phone] Encounter Details Date Type Department Care Team (Latest Contact Info) Description 09/09/2003 Outpatient Historical [facility] [address] [place] [address] Ana Mckee, BUSINESS ANALYTICS SPECIALIST [address] [place] [phone] ACUTE BRONCHITIS (Primary Dx); ACUTE URI NOS Social History Tobacco Use Types Packs/Day Years Used Date Smoking Tobacco: Never Assessed Sex and Gender Information Value Date Recorded Sex Assigned at Not on file 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
--- OUTSIDE RECORDS SUMMARY | 2025-02-24 12:09 | XMS_ITS | Encounter Summary ---
Author Organization [facility] Address [address] [place] [address] Care Team Providers Care Spring Machine Operator Name Role Phone Promise Moses MD Primary Care Provider Encounter Details Date Type Department Care Team (Latest Contact Info) Description 02/01/2000 Outpatient Historical [facility] Medicine [address] [phone] Juan F Corral MD [address] [phone] Esophageal reflux (Primary Dx); Anxiety state, unspecified Social History Tobacco Use Types Packs/Day Years Used Date Smoking Tobacco: Never Assessed Sex and Gender Information Value Date Recorded Sex Assigned at Not on file 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
--- OUTSIDE RECORDS SUMMARY | 2025-02-24 12:10 | XMS_ITS | Encounter Summary ---
Author Organization [facility] Address [address] [place] [address] Care Team Providers Care Rn Emergency Room Name Role Phone Promise Moses MD Primary Care Provider Encounter Details Date Type Department Care Team (Latest Contact Info) Description 02/07/2006 Outpatient Historical [facility] Medicine- [address] [phone] Martin Triplett PA NO ADDRESS ON FILE Other Abnormal Glucose (Primary Dx); Other Malaise and Fatigue; Proteinuria Social History Tobacco Use Types Packs/Day Years Used Date Smoking Tobacco: Never Assessed Sex and Gender Information Value Date Recorded Sex Assigned at Not on file 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
--- OUTSIDE RECORDS SUMMARY | 2025-02-24 12:10 | XMS_ITS | Clinical Summary ---
Author Organization [facility] [place] Address [address] [place] [address] Care Team Providers Care Service Representative Name Role Phone Mark Garcia MD Primary Care Provider [phone] Allergies Active Allergy Reactions Criticality Noted Date Comments Penicillins Other (See Comments) 10/01/2010 Not sure of reaction was a baby when he had reaction Medications triamcinolone acetonide (KENALOG) 0.025 % Cream Apply to affected area 2 times daily. 30 Gram 1 0 Active promethazine (PHENERGAN) 6.25 mg/5 mL Syrup Take 5 mL (6.25 mg) by mouth every 6 hours as needed (congestion and drainage). 120 mL 1 Active FLUoxetine (PROzac) 20 mg tablet TAKE 1 TABLET DAILY 90 Tablet 1 1 Active rosuvastatin (CRESTOR) 5 mg tablet 2 Active ketorolac tromethamine (TORADOL) 10 mg tabletIndications :Kidney stones Take 1 Tablet (10 mg) by mouth every 6 hours as needed for Pain. 20 Tablet 2 Active tamsulosin (FLOMAX) 0.4 mg capsuleIndication s:Kidney stones TAKE 1 CAPSULE(0.4 MG) BY MOUTH DAILY 30 Capsule 2 Active Active Problems Problem Noted Date Diagnosed Date Mixed hyperlipidemia 01/31/2021 Right ureteral stone 02/09/2019 History of kidney stones 02/09/2019 Tobacco use 04/20/2015 Resolved Problems Problem Noted Date Diagnosed Date Resolved Date Rectal bleeding 11/06/2011 02/07/2016 Immunizations Immunization Administration Dates Next Due (SPIKEVAX) (12 YRS UP PRIMAR Y SERIES) COVID-19 VACCINE - MRNA-1273(PF) 100 MCG/0.5 ML IM SUSP 02/16/2021,01/13/2021 (TDVAX)(7 YRS UP) TETANUS AN D DIPHTHERIA TOXOIDS, ADSORBED (2 LF OF TETANUS TOXOID AND 2 LF OF DIPHTHERIA TOXOID), 0.5ML (PF), IM 07/18/2003 Family History Medical History Relation Name Comments Heart Disease Father Cancer Mother multiple myloma Healthy Sister Relation Name Status Comments Father Alive Mother Sister Alive Social History Tobacco Use Types Packs/Day Years Used Date Smoking Tobacco: Never Smokeless Tobacco: Current Tobacco Cessation:Ready to Q uit: No; Counseling Given: Yes Alcohol Use Standard Drinks/Week Comments No 0 (1 standard drink = 0.6 oz pur e alcohol) Sex and Gender Information Value Date Recorded Sex Assigned at Not on file Legal Sex Male 6:15 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 Gender Identity Not on file Sexual Orientation Not on file Last Filed Vital Signs Vital Sign Reading Time Taken Comments Blood Pressure 109/79 02/01/2022 2:32 PM CDT Pulse 69 02/01/2022 2:32 PM CDT Temperature 35.8 C (96.4 F) 02/01/2022 2:32 PM CDT Respiratory Rate 17 02/01/2022 2:32 PM CDT Oxygen Saturation 95% 02/01/2022 2:32 PM CDT Inhaled Oxygen Concentration - - Weight 103.8 kg (228 lb 12.8 oz) 02/01/2022 2:32 PM CDT Height 155.4 cm (5' 1.2 ) 02/01/2022 2:32 PM CDT Body Mass Index 42.95 02/01/2022 2:32 PM CDT Plan of Treatment Health Maintenance Due Date Last Done Comments HEPATITIS B VACCINES (1 of 3 - 19+ 3-dose series) 1997 DTAP/TDAP/TD VACCINES (1 - Tdap) 07/19/2003 07/18/19 04 COLORECTAL SCREENING 2023 Colorectal Cancer Screening 2023 FIT-DNA Q 3 years 2023 FIT/FOBT Q 1 year 2023 Flex Sig/CT Colonography Q 5 years 2023 Preventative Visit- Commercial 06/02/2024 INFLUENZA VACCINE (#1) 2024 2, 01/31/2021, 10/12/2020, Additional history exists COVID-19 Vaccine (2024-2 6 season) 2025 02/16/2021, 01/13/2021 Medical Devices Implanted Type Area Electric Serviceman Device Identifier Shelf Expiration Date Model / Serial / Lot Stent Prcflx Plus [id number] - [id number] Implanted:Qty: 1 on 02/11/2019 by Momo Longoria MD Stent Right: Ureter [employer]/LEAD MATERIAL HANDLER 11/04/2021 [id number] / / [id number] Insurance [facility] [employer] PPO * Guarantor: PERCY NAVA Account Type Relation to Patient Date of Phone Billing Address Personal/Family [address] [place] [address] RX [facility] Care Teams Service Representative Relationship Specialty Start Date End Date Mark Garcia MD [address] [phone] PCP - General Family Practice 08/05/23
--- OUTSIDE RECORDS SUMMARY | 2025-02-24 12:10 | XMS_ITS | Encounter Summary ---
Author Organization [facility] Address [address] [place] [address] Care Team Providers Care Director Of Product Management Name Role Phone Promise Moses MD Primary Care Provider Encounter Details Date Type Department Care Team (Latest Contact Info) Description 06/15/2002 Outpatient Historical [facility] Family Medicine- [address] [phone] Juan F Corral MD [address] [phone] ACUTE BRONCHITIS (Primary Dx) Social History Tobacco Use Types Packs/Day Years Used Date Smoking Tobacco: Never Assessed Sex and Gender Information Value Date Recorded Sex Assigned at Not on file 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
--- OUTSIDE RECORDS SUMMARY | 2025-02-24 12:10 | XMS_ITS | Encounter Summary ---
Author Organization [facility] Address [address] [place] [address] Care Team Providers Care Inspector Floor Sub Assembly Name Role Phone Promise Moses MD Primary Care Provider Encounter Details Date Type Department Care Team (Latest Contact Info) Description 03/14/2004 Outpatient Historical [facility] Medicine- [address] [phone] Juan F Corral MD [address] [phone] ESOPHAGEAL REFLUX (Primary Dx); PROTEINURIA Social History Tobacco Use Types Packs/Day Years Used Date Smoking Tobacco: Never Assessed Sex and Gender Information Value Date Recorded Sex Assigned at Not on file 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
--- OUTSIDE RECORDS SUMMARY | 2025-02-24 12:10 | XMS_ITS | Encounter Summary ---
Author Organization [facility] Address [address] [place] [address] Care Team Providers Care Supplier Quality Manager Name Role Phone Promise Moses MD Primary Care Provider Encounter Details Date Type Department Care Team (Latest Contact Info) Description 07/17/2005 Outpatient Historical [facility] [address] [place] [address] Ana Mckee, CONSOLE ATTENDANT [address] [place] [phone] DIARRHEA NOS (Primary Dx) Social History Tobacco Use Types Packs/Day Years Used Date Smoking Tobacco: Never Assessed Sex and Gender Information Value Date Recorded Sex Assigned at Not on file 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
--- OUTSIDE RECORDS SUMMARY | 2025-02-24 12:10 | XMS_ITS | Encounter Summary ---
Author Organization [facility] Address [address] [place] [address] Care Team Providers Care Fast Foods Worker Name Role Phone Promise Moses MD Primary Care Provider Encounter Details Date Type Department Care Team (Latest Contact Info) Description 02/14/2006 Outpatient [facility] Medicine- [address] [phone] Martin Triplett PA NO ADDRESS ON FILE Proteinuria (Primary Dx); Other Malaise and Fatigue; Hypoglycemia, Unspecified Social History Tobacco Use Types Packs/Day Years Used Date Smoking Tobacco: Never Assessed Sex and Gender Information Value Date Recorded Sex Assigned at Not on file 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
--- OUTSIDE RECORDS SUMMARY | 2025-02-24 12:10 | XMS_ITS | Encounter Summary ---
Author Organization [facility] Address [address] [place] [address] Care Team Providers Care Tank Car Repairer Name Role Phone Promise Moses MD Primary Care Provider [phone] Reason for Referral * Radiology Services (Routine) - Closed Specialty Diagnoses / Procedures Referred By Contac t Referred To Contact Diagnoses Pain Procedures XR FLUORO LESS THAN 1 HOUR Momo Longoria MD Phone: tel: fax: [facility] Pre-Registration [place] CALL TO MAKE APPOINTMENT ONLY [address] [place] [address] Phone: tel: fax: Referral ID Status Reason Start Date Expiration Date Visits Re quested Visits Authorized [id number] Closed 02/12/2019 03/14/2020 1 1 Encounter Details Date Type Department Care Team (Late st Contact Info) Description 02/12/2019 Ancillary Orders [facility] Radiology OR [address] 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 Exam was auto-finalized. us Momo Longoria MD DIAGNOSTIC [facility] Final Result documented in this encounter Visit Diagnoses Diagnosis Pain Generalized pain Pain Generalized pain documented in this encounter Care Teams Tank Car Repairer Relationship Specialty Start Date End Date Promise Moses MD [address] [phone] PCP - General Family Practice 07/10/17 documented as of this encounter
--- OUTSIDE RECORDS SUMMARY | 2025-02-24 12:11 | XMS_ITS | Encounter Summary ---
Author Organization [facility] Address [address] [place] [address] Care Team Providers Care Water/Wastewater Project Engineer Name Role Phone Promise Moses MD Primary Care Provider Encounter Details Date Type Department Care Team (Latest Contact Info) Description 03/20/1999 Outpatient Historical [facility] Family Medicine- [address] [place] [address] Santos Nielsen, NO ADDRESS ON FILE Acute bronchitis (Primary Dx); Allergic rhinitis, cause unspecified Social History Tobacco Use Types Packs/Day Years Used Date Smoking Tobacco: Never Assessed Sex and Gender Information Value Date Recorded Sex Assigned at Not on file 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
--- OUTSIDE RECORDS SUMMARY | 2025-02-24 12:11 | XMS_ITS | Clinical Summary ---
Author Organization [facility] Address [address] [place] [address] Care Team Providers Care Senior Commissions Analyst Name Role Phone Promise Moses MD Primary Care Provider Allergies Active Allergy Reactions Criticality Noted Date Comments Penicillins Other (See Comments) 10/01/2010 Not sure of reaction was a baby when he had reaction Medications triamcinolone acetonide (KENALOG) 0.025 % Cream Apply to affected area 2 times daily. 30 Gram 1 01/31/2020 Active FLUoxetine (PROzac) 20 mg tablet TAKE 1 TABLET DAILY 90 Tablet 1 09/12/2020 Active famotidine (PEPCID) 40 mg tablet Take 1 Tablet (40 mg) by mouth daily. 30 Tablet 3 10/31/2020 Active Active Problems Problem Noted Date Diagnosed Date History of kidney stones 02/09/2019 Right ureteral stone 02/09/2019 Tobacco use 04/20/2015 Resolved Problems Problem Noted Date Diagnosed Date Resolved Date Rectal bleeding 11/06/2011 02/07/2016 Immunizations Immunization Administration Dates Next Due (TDVAX)(7 YRS UP) TETANUS AN D DIPHTHERIA [...] Smoking Tobacco: Never Smokeless Tobacco: Current Chew Tobacco Cessation:Counseling Given: No Alcohol Use Standard Drinks/Week Comments No 0 (1 standard drink = 0.6 oz pur e alcohol) Sex and Gender Information Value Date Recorded Sex Assigned at Not on file 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 Gender Identity Not on file Sexual Orientation Not on file Last Filed Vital Signs Vital Sign Reading Time Taken Comments Blood Pressure 110/80 10/31/2020 8:07 AM CDT Pulse 61 10/31/2020 8:07 AM CDT Temperature 35.8 C (96.5 F) 10/31/2020 8:07 AM CDT Respiratory Rate 15 10/31/2020 8:07 AM CDT Oxygen Saturation 98% 10/31/2020 8:07 AM CDT Inhaled Oxygen Concentration - - Weight 100.8 kg (222 lb 3.2 oz) 10/31/2020 8:07 AM CDT Height 180.3 cm (5' 11 ) 10/31/2020 8:07 AM CDT Body Mass Index 30.99 10/31/2020 8:07 AM CDT Plan of Treatment Health Maintenance Due Date Last Done Comments HEPATITIS B VACCINES (1 of 3 - 19+ 3-dose series) 1997 DTAP/TDAP/TD VACCINES (1 - Tdap) 07/19/2003 07/18/19 04 COLORECTAL SCREENING 2023 Colorectal Cancer Screening 2023 FIT-DNA Q 3 years 2023 FIT/FOBT Q 1 year 2023 Flex Sig/CT Colonography Q 5 years 2023 Preventative Visit- Commercial 06/02/2024 INFLUENZA VACCINE (#1) 2024 10/12/2020, 2017 Medical Devices Implanted Type Area Counseling Director Device Identifier Shelf Expiration Date Model / Serial / Lot Stent Prcflx Plus [id number] - [id number] Implanted:Qty: 1 on 02/11/2019 by Momo Longoria MD at [facility] Stent Right: Ureter [employer]/DIE FINISHER 11/04/2021 [id number] / / [id number] Insurance BCBS [facility] [place] [address] RX [facility] [employer] Care Teams Senior Commissions Analyst Relationship Specialty Start Date End Date Promise Moses MD [address] [phone] PCP - General Family Practice 07/10/17
--- OUTSIDE RECORDS SUMMARY | 2025-02-24 12:11 | XMS_ITS | Encounter Summary ---
Author Organization [facility] Address [address] [place] [address] Care Team Providers Care Unit Aid Name Role Phone Promise Moses MD Primary Care Provider [phone] Encounter Details Date Type Department Care Team (Latest Contact Info) Description 07/19/1998 Outpatient Historical [facility] Medicine- [address] [phone] Juan F Corral MD [address] [phone] Acute sinusitis, unspecified (Primary Dx) Social History Tobacco Use Types Packs/Day Years Used Date Smoking Tobacco: Never Assessed Sex and Gender Information Value Date Recorded Sex Assigned at Not on file 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
[2025-02-24 12:15] LABS: Glucose Urine UA Negative (Normal); Nitrate Urine Negative (Negative); Specific Gravity, Urine 1.014 (1.005-1.030)
[2025-02-24 12:20] LABS: Add Urine Microscopic? YES
--- NOTE | 2025-02-24 12:28 | CT_ITS ---
WS: [id number] CT ABDOMEN PELVIS TECHNIQUE: Noncontrast CT of the abdomen and pelvis with coronal and sagittal reformatted images. CLINICAL INFORMATION: Abdominal pain COMPARISON: 2023 DLP: 1074.[address] scans at [facility] use at least one of these dose optimization techniques: automated exposure control; mA and/or kV adjustment per patient size (includes targeted exams where dose is matched to clinical indication); or iterative reconstruction. FINDINGS: Normal noncontrast liver and gallbladder. Splenic granulomas. Tiny esophageal hiatal hernia. Subsegmental atelectasis in the lung bases. Calcified granuloma LEFT lower lobe. Adrenal glands are normal. No hydronephrosis. No obstructing renal or ureteral calculi. Tiny nonobstructing RIGHT calyceal tip calculi. Normal noncontrast aorta. Fat-containing umbilical hernia. No free fluid in the abdomen or pelvis. CT/CT abdomen pelvis wo con [id number] IMPRESSION: 1. Normal appendix. 2. Small fat-containing umbilical hernia. 3. No acute findings in the abdomen or pelvis.
[2025-02-24 12:48] VITALS: BP 102/77; PULSE 60; O2SAT 93
[2025-02-24 14:08] VITALS: BP 99/73; PULSE 74; O2SAT 92
--- NOTE | 2025-02-28 16:46 | DCPLANNER ---
messaged gen surg for er f/u and faxed outpatient hida order to scheduling
== END 2025-02-24 14:09 | disposition home or self-care (01) ==
PROVIDERS: Emergency Provider Family Medicine; PCP Nurse Practitioner Family
DX: K80.50 Calculus of bile duct without cholangitis or cholecystitis without obstruction (principal)
CPT/HCPCS: 36415; 74176; 76705; 80053; 81001; 83690; 85025; 99284

== ENCOUNTER 2025-03-17 09:28 | Outpatient (CLI) | payer BC, SELFPAY ==
--- NOTE | 2025-03-17 10:00 | NM_ITS ---
WS: [id number] NUCLEAR MEDICINE HIDA SCAN WITH GALLBLADDER EJECTION FRACTION HISTORY: biliary dyskinesia COMPARISON: 04/05/2021, gallbladder ultrasound 02/24/2025 TECHNIQUE: The patient was intravenously injected with 8.2 mCi of TC99m Mebrofenin. Immediate imaging over the right upper quadrant was followed by 5 minute image and additional images for a total of 60 minutes. Normal uptake of radiotracer throughout the liver. Activity identified in the gallbladder at 20 minutes and well distended by 60 minutes. Activity in the proximal small bowel was seen by 20 minutes. Good washout of the radiotracer from the liver by 60 minutes. The patient then drank 8 ounces of Ensure Plus. At 60 minutes the gallbladder continues to fill with radionuclide. No positive ejection fraction. Normal GB ejection fraction is 35-75%. Post fatty meal symptoms: None. NM/NM hepatobiliary w phar* [id number] IMPRESSION: 1. No cystic or common bile duct obstruction. 2. Abnormal gallbladder ejection fraction. Gallbladder did not contract after fatty meal but continued to increase in size. Consistent with biliary dyskinesi a. Recommend evaluation by surgery.
== END 2025-03-17 09:29 | disposition home or self-care (01) ==
LOC: RAD 09:32
PROVIDERS: PCP Nurse Practitioner Adult Health; Visit Provider Student in an Organized Health Care Education/Training Program
DX: K82.8 Other specified diseases of gallbladder (principal)
CPT/HCPCS: 78227; A9537